=== PATIENT | female | born 1975 | race Two or more races ===

== ENCOUNTER 2024-01-28 20:27 | Inpatient (IN) | payer OTHER ==
[~2024-01-28] VITALS: Ht 167.6 cm; Wt 107.6 kg
--- NOTE | 2024-01-28 21:12 | ED.PDOC ---
History of Present Illness HPI Comments 48-year-old female who came to ER for hyperglycemia. Patient does have history of hypertension. Never diagnosed with diabetes. States she was at the store earlier, when she started having sudden onset blurring of vision, with headaches and dizziness. Blood sugar taken at home was 438. Patient admits that for the past few months she has been urinating frequently and is always thirsty. Upon arrival of the ER blood sugar was 510, with a blood pressure of 197/130 mm Hg. Chief Complaint: Hyperglycemia Time Seen by MD: 21:11 Reviewed Notes: Nurses Notes Allergies: Coded Allergies: No Known Drug Allergy (Verified Allergy, Unknown, 01/28/24) Information Source: Patient Mode of Arrival: Ambulatory Severity: Moderate Timing: Hours Duration: Intermittent Prehospital treatment: None Medication Refill: For: Other Past Medical History PAST MEDICAL HISTORY: HTN Surgical History: Denies all surgeries PURCHASING SUPERVISOR History: Denies all PURCHASING SUPERVISOR Hx Family History Family History: Reviewed,noncontributory to illness Social History Smoker: Non-Smoker Alcohol: Denies ETOH Use Drugs: Denies Drug Use Lives In: Home Constitutional: reports: fatigue, weakness; denies: chills, diaphoresis, fever, malaise, sweats, others EENTM: reports: blurred vision; denies: double vision, ear bleeding, ear discharge, ear drainage, ear pain, ear ringing, eye pain, eye redness, hearing loss, mouth pain, mouth swelling, nasal discharge, nose bleeding, nose congestion, nose pain, photophobia, tearing, throat pain, throat swelling, voice changes, others Respiratory: denies: cough, hemoptysis, orthopnea, SOB at rest, shortness of breath, SOB with excertion, stridor, wheezing, others Cardiovascular: denies: chest pain, dizzy spells, diaphoresis, Dyspnea on exertion, edema, irregular heart beat, left arm pain, lightheadedness, palpitations, PND, syncope, others Gastrointestinal: denies: abdomen distended, abdominal pain, blood streaked bowels, constipated, diarrhea, dysphagia, difficulty swallowing, hematemesis, melena, nausea, poor appetite, poor fluid intake, rectal bleeding, rectal pain, vomiting, others Genitourinary: denies: abnormal vagina bleeding, burning, dyspareunia, dysuria, flank pain, frequency, hematuria, incontinence, pain, , vagina discharge, urgency, others Neurological: reports: dizziness, headache; denies: fainting, left sided numbness, left sided weakness, numbness, paresthesia, pre-existing deficit, right sided numbness, right sided weakness, seizure, speech problems, tingling, tremors, weakness, others Musculoskeletal: denies: back pain, gout, joint pain, joint swelling, muscle pain, muscle stiffness, neck pain, others Integumetry: denies: bruises, change in color, change in hair/nails, dryness, laceration, lesions, lumps, rash, wounds, others Allergic/Immunocompromised: denies: Difficulty Healing, Frequent Infections, Hives, Itching, others Hematologic/Lymphatic: denies: anemia, blood clots, easy bleeding, easy bruising, swollen glands, others Endocrine: reports: excessive thirst, excessive urination; denies: excessive hunger, excessive sweating, flushing, intolerance to cold, intolerance to heat, unexplained weight gain, unexplained weight loss, others Psychiatric: denies: anxiety, bipolar disorder, depression, hopeless, panic disorder, schizophrenia, sleepless, suicidal, others Physical Exam General Appearance: No Apparent Distress, Normal HEENT: Normal ENT Inspection, Pharynx Normal, TMs Normal Neck: Full Range of Motion, Non-Tender, Normal, Normal Inspection Respiratory: Chest Non-Tender, Lungs Clear, No Accessory Muscle Use, No Respiratory Distress, Normal Breath Sounds Cardiovascular: No Edema, No JVD, No Murmur, No Gallop, Normal Peripheral Pulses, Regular Rate/Rhythm Breast Exam: Deferred Gastrointestinal: No Organomegaly, Non Tender, No Pulsatile Mass, Normal Bowel Sounds, Soft Genitalia: Deferred Pelvic: Deferred Rectal: Deferred Extremities: No calf tenderness, Normal capillary refill, Normal inspection, Normal range of motion, Non-tender, No pedal edema Musculoskeletal : Apperance: Normal Neurologic: Alert, director information security II-XII nml as Tested, No Motor Deficits, Normal Affect, Normal Mood, No Sensory Deficits Cerebellar Function: Normal Reflexes: Normal Skin: Dry, Normal Color, Warm Lymphatic: No Adenopathy Was a procedure done? Was a procedure done?: No Differential Dx Considerations may include: Anemia, electrolyte imbalance, hyperglycemia, urinary tract infection, hypertensive urgency X-Ray, Labs, Meds, VS Vital Signs Date Time Temp Pulse Resp B/P (MAP) Pulse Ox O2 Delivery O2 Flow Rate FiO2 01/28/24 20:53 98.5 108 20 194/120 (144) 98 Lab Test 01/28/24 21:10 01/28/24 21:08 01/28/24 20:48 Range/Units White Blood Count 13.1 H 4.4-10.8 10^3/uL Red Blood Count 5.00 4.0-5.20 10^6/uL Hemoglobin 14.3 12.2-16.2 g/dL Hematocrit 43.1 36.0-46.0 % Mean Corpuscular Volume 86.2 80.0-100.0 fL Mean Corpuscular Hemoglobin 28.5 28.0-32.0 pg Mean Corpuscular Hemoglobin Concent 33.1 32.0-36.0 g/dL Red Cell Distribution Width 15.0 H 11.8-14.3 % Platelet Count 232 140-450 10^3/uL Mean Platelet Volume 9.6 6.9-10.8 fL Neutrophils (%) (Auto) 68.1 37.0-80.0 % Lymphocytes (%) (Auto) 25.9 10.0-50.0 % Monocytes (%) (Auto) 4.8 0.0-12.0 % Eosinophils (%) (Auto) 0.6 0.0-7.0 % Basophils (%) (Auto) 0.6 0.0-2.0 % Neutrophils # (Auto) 8.9 H 1.6-8.6 10 ^3/uL Lymphocytes # (Auto) 3.4 0.4-5.4 10 ^3/uL Monocytes # (Auto) 0.6 0-1.3 10 ^3/uL Eosinophils # (Auto) 0.1 0-0.8 10 ^3/uL Basophils # (Auto) 0.1 0-0.2 10 ^3/uL Nucleated Red Blood Cells 0.2 % Sodium Level 134 L 136-145 mmol/L Potassium Level 3.5 3.5-5.1 mmol/L Chloride Level 98 98-107 mmol/L Carbon Dioxide Level 26 20-31 mmol/L Anion Gap 10 5-15 Blood Urea Nitrogen 10 9-23 mg/dL Creatinine 1.19 H 0.550-1.02 mg/dL Glomerular Filtration Rate Calc 56 >90 mL/min BUN/Creatinine Ratio 8.4 L 10.0-20.0 Serum Glucose 537 *H 74-106 mg/dL Calcium Level 10.2 8.7-10.4 mg/dL Magnesium Level 2.1 1.6-2.6 mg/dL Total Bilirubin 0.9 0.2-1.0 mg/dL Aspartate Amino Transferase (AST) 68 H 13-40 U/L Alanine Aminotransferase (ALT) 80 H 7-40 U/L Alkaline Phosphatase 130 H 46-116 U/L Total Protein 8.2 5.7-8.2 g/dL Albumin 4.2 3.2-4.8 g/dL Blood Gas Specimen Type Venous Blood Gas Sample Site Vbg - n/a Blood Gas Patient Temperature 37.0 Arterial Blood Date Drawn Diaz Test N/a Venous Blood pH 7.471 H 7.320-7.430 Venous Blood pCO2 at Patient Temp 41.6 38.0-54.0 mmHg Venous Blood pO2 at Patient Temp < 36.5 23.0-48.0 mmHg Venous Blood HCO3 29.7 H 22.0-29.0 mmol/L Venous Bld O2 Saturation (Measured) 45.4 L 60.0-85.0 % Venous Blood Base Excess 5.5 H -2.0-3.0 mmol/L Venous Blood Total Hemoglobin 14.7 12.0-16.0 g/dL Venous Blood Oxyhemoglobin 44.8 0.0-79.0 % Venous Blood Carboxyhemoglobin 0.9 0.5-1.5 % Venous Blood Methemoglobin 0.5 0.0-1.5 % Blood Gas Modality Room air FiO2 % 21.0 POC Glucose 510 *H 70-106 mg/dl Time of 1ST Reevaluation: 21:09 Reevaluation 1ST: Unchanged Time of 2ND Reevaluation: 22:19 Reevaluation 2ND: Unchanged Patient Education/Counseling: Diagnosis, Treatment Family Education/Counseling: No Family Present Departure 1 Departure Time of Disposition: 22:18 Impression: Primary Impression: Hyperglycemia due to diabetes mellitus Additional Impression: Newly diagnosed diabetes Disposition: ADMITTED INPATIENT Condition: Guarded Critical Care Note Critical Care Time?: Yes (35 min-critical care time only) Critical care comment: Hyperglycemia Stability Stability form required: No Heart Score Heart Score: Heart Score Response (Comments) Value History N/A 0 EKG N/A 0 Age N/A 0 Risk Factors N/A 0 Troponin N/A 0 Total 0 I personally scribed for YANI JONES MD ([email or web address]) on 01/28/24 at 21:12. Electronically submitted by Denny Bernal ([email or web address]). YANI JONES MD Jan 28, 2024 21:12
[2024-01-28 21:21] LABS: Basophils # (auto) 0.1 10 ^3/uL (0-0.2); Basophils % (auto) 0.6 % (0.0-2.0); Eosinophils # (auto) 0.1 10 ^3/uL (0-0.8); Eosinophils % (auto) 0.6 % (0.0-7.0); Hematocrit 43.1 % (36.0-46.0); Hemoglobin 14.3 g/dL (12.2-16.2); Lymphocytes # (auto) 3.4 10 ^3/uL (0.4-5.4); Lymphocytes % (auto) 25.9 % (10.0-50.0); Mean Corpuscular Hemoglobin 28.5 pg (28.0-32.0); Mean Corpuscular Hgb Conc. 33.1 g/dL (32.0-36.0); Mean Corpuscular Volume 86.2 fL (80.0-100.0); Monocytes # (auto) 0.6 10 ^3/uL (0-1.3); Monocytes % (auto) 4.8 % (0.0-12.0); Neutrophils # (auto) 8.9 10 ^3/uL (1.6-8.6); Neutrophils % (auto) 68.1 % (37.0-80.0); Nucleated Red Blood Cells % 0.2 %; Platelet Count (auto) 232 10^3/uL (140-450); White Blood Cell 13.1 10^3/uL (4.4-10.8)
[2024-01-28 21:41] LABS: Alanine Aminotransferase 80 U/L (7-40); Albumin 4.2 g/dL (3.2-4.8); Alkaline Phosphatase 130 U/L (46-116); Anion Gap 10 (5-15); Aspartate Aminotransferase 68 U/L (13-40); BUN/Creatinine Ratio 8.4 (10.0-20.0); Blood Urea Nitrogen 10 mg/dL (9-23); Calcium 10.2 mg/dL (8.7-10.4); Carbon Dioxide 26 mmol/L (20-31); Chloride 98 mmol/L (98-107); Magnesium 2.1 mg/dL (1.6-2.6); Potassium 3.5 mmol/L (3.5-5.1); Sodium 134 mmol/L (136-145)
[2024-01-28 21:42] LABS: Bilirubin, Total 0.9 mg/dL (0.2-1.0); Total Protein 8.2 g/dL (5.7-8.2)
[2024-01-28 21:57] LABS: Glucose 537 mg/dL (74-106)
[2024-01-28 23:10] VITALS: PULSE 95; RESP 18; O2SAT 98
[2024-01-28] MEDS: SODIUM CHLORIDE 0.9% 1,000 ML IVB ONE (23:18)
[2024-01-28] MEDS: cloNIDine HCL 0.1 MG TAB PO ONE (23:21)
[2024-01-29] VITALS (11 sets, daily range): BP systolic 103–180; BP diastolic 58–95; PULSE 62–90; RESP 18–21; TEMP 97.8–98.3; O2SAT 91–100
[2024-01-29] MEDS: hydrALAZINE HCL 20 MG/ML VL IV ONE
[2024-01-29] MEDS: ONDANSETRON HCL 4 MG/2 ML VIAL IV ONE (00:08)
[2024-01-29] MEDS: MORPHINE SULFATE 4 MG/ML SYR/VIAL IV ONE (00:08)
[2024-01-29] MEDS: InsuLIN REG 1unit/0.01ml Soln (100units/ml) IV ONE (00:44)
[2024-01-29] MEDS ORDERED: ONDANSETRON HCL 4 MG/2 ML VIAL IV PRN (01:00)
[2024-01-29] MEDS ORDERED: DOCUSATE SOD 100 MG CAP PO PRN (01:00)
[2024-01-29] MEDS ORDERED: DEXTROSE (50%) 50ML SYRG IV PRN ×4 (01:00→15:00)
[2024-01-29] MEDS ORDERED: hydrALAZINE HCL 20 MG/ML VL IV PRN (01:00)
[2024-01-29] MEDS: SODIUM CHLORIDE 0.9% 1,000 ML IV SCH (01:10)
[2024-01-29 02:04] LABS: Urine Bacteria MANY /hpf (None Seen); Urine Blood Negative /uL (Negative); Urine Clarity Turbid (Clear); Urine Color Colorless (Yellow); Urine Protein, UAD TRACE (Negative); Urine Specific Gravity 1.031 (1.001-1.035); Urine Urobilinogen Normal (Negative); Urine WBC 8 /hpf (0 - 5); Urine pH 5.5 (5.0-9.0)
[2024-01-29] MEDS ORDERED: MORPHINE SULFATE INJ 2 MG/ml SYRG IV PRN (02:15)
[2024-01-29] MEDS ORDERED: NITROGLYCERIN 0.4 MG SL TAB SL PRN (02:15)
--- NOTE | 2024-01-29 02:28 | DVHHP2 ---
History of Present Illness Reason for Visit: Hypertensive urgency History of Present Illness The patient is a 48-year-old female with past medical history of hypertension who presented to [facility] ED with complaint of elevated blood sugar. Patient reports having sudden onset of blurry vision, dizziness, headache, weakness, fatigue, getting worse that prompted this visit. Patient was seen and evaluated in the ED, laboratory data shows WBC 13.1, platelets 232, sodium 134, potassium 3.5, BUN 10, creatinine 1.19, glucose 537, AST 68, ALT 80, blood pressure 230/130 trending down to 156/93, heart rate 88, temperature 98.6 F, O2 saturation 98% on room air. Patient denies history of diabetes mellitus. Patient was given clonidine 0.2 mg p.o. x1, please see medication orders section in the computer. On my assessment, patient denied chest pain, no headache, no diaphoresis, no shortness of breath, no nausea, no vomiting, no fever, no chills . Patient was admitted for further evaluation and medical management. Past Medical History HTN Past Surgical History Denies all surgeries Family History Reviewed, noncontributory to the management of this case. Past Social History The patient lives at home, denies smoking, alcohol or illicit drugs abuse. Review of Systems Constitutional: Yes: Weakness, Other (Fatigue); No: Fever, Chills, Sweats, Malaise Eyes: Other (Blurred vision); No: Pain, Vision change, Conjunctivae inflammation, Eyelid inflammation, Redness ENT: No: Ear pain, Ear discharge, Nose pain, Nose discharge, Nose congestion, Mouth pain, Mouth swelling, Throat pain, Throat swelling, Other Respiratory: No: Cough, Dry, Shortness of breath, SOB with excertion, Wheezing, Hemoptysis, Pleuritic Pain, Sputum, Wheezing, Other Cardiovascular: No: Chest Pain, Palpitations, Orthopnea, Paroxysmal Noc. Dyspnea, Edema, Lt Headedness, Other Gastrointestinal: No: Nausea, Vomiting, Abdominal Pain, Diarrhea, Constipation, Melena, Hematochezia, Other Genitourinary: No Dysuria, No Frequency, No Incontinence, No Hematuria, No Retention, No Other Musculoskeletal: No: other, neck pain, shoulder pain, arm pain, back pain, hand pain, leg pain, foot pain Skin: No: Rash, Lesions, Jaundice, Bruising, Other Neurological: Other (Headache, dizziness.); No: Weakness, Numbness, Incoordination, Change in speech, Confusion, Seizures Allergies: Coded Allergies: No Known Drug Allergy (Verified Allergy, Unknown, 01/28/24) Medications Current Medications Medications Dose Ordered Sig/Juan C Route Start Time Stop Time Status Last Admin Dose Admin Hydralazine HCl 10 mg Q6HP PRN IV 01/29/24 01:00 Clonidine HCl 0.2 mg Q6HP PRN PO 01/29/24 01:00 Amlodipine Besylate 5 mg DAILY PO 01/29/24 10:00 Lisinopril 20 mg DAILY PO 01/29/24 10:00 Metoprolol Tartrate 25 mg BID PO 01/29/24 10:00 Ibuprofen 600 mg Q6HP PRN PO 01/29/24 01:00 Diagnostic Test (Pha) 1 strip IQ4HR 01/29/24 04:00 Insulin Human Regular IQ4HR SC 01/29/24 04:00 Dextrose 50 ml UD PRN IV 01/29/24 01:00 Sodium Chloride 1,000 ml @ 120 mls/hr Q8H20M IV 01/29/24 01:00 01/29/24 01:10 120 MLS/HR Acetaminophen/ Hydrocodone Bitart 1 tab Q4HP PRN PO 01/29/24 01:00 Ondansetron HCl 4 mg Q4HP PRN IV 01/29/24 01:00 Docusate Sodium 100 mg BIDPRN PRN PO 01/29/24 01:00 Morphine Sulfate 2 mg Q4HPRN PRN IV 01/29/24 01:00 Exam Vital Signs Vital Signs Date Time Temp Pulse Resp B/P (MAP) Pulse Ox O2 Delivery O2 Flow Rate FiO2 01/29/24 02:00 84 21 156/93 (114) 90 01/29/24 00:45 98.6 98.6 01/29/24 00:45 Room Air* 0 21 General Appearance: Alert, Oriented X3, Cooperative, No acute distress HEENT: Atraumatic, PERRLA, EOMI, Mucous membr. moist/pink Respiratory: Clear to auscultation, Normal air movement Cardiovascular: Regular rate, Normal S1, Normal S2, No murmurs Abdominal: Normal bowel sounds, Soft, No tenderness, No hepatospenomegaly, No m asses Extremities: No clubbing, No cyanosis, No edema, Normal pulses, No tenderness/swelling Skin: No rashes, No breakdown, No significant lesion Neuro: Normal gait, Normal speech, Strength at 5/5 X4 ext, Normal tone, Sensation intact, Cranial nerves 3-12 NL, Reflexes 2+ Psych/Mental Status: Mental status NL, Mood NL Labs/Xrays Labs Test 01/29/24 00:39 01/29/24 00:00 01/28/24 21:10 01/28/24 21:08 Range/Units POC Glucose 347 H 70-106 mg/dl Urine Color Colorless Yellow Urine Clarity Turbid H Clear Urine pH 5.5 5.0-9.0 Urine Specific [place] 1.031 1.001-1.035 Urine Protein Trace H Negative Urine Ketones Trace Negative Urine Blood Negative Negative /uL Urine Nitrite Negative Negative Urine Bilirubin Negative Negative Urine Urobilinogen Normal Negative mg/dL Urine Leukocyte Esterase Negative Negative /uL Urine RBC 16 0 - 4 /hpf Urine WBC 8 0 - 5 /hpf Urine Squamous Epithelial Cells Mod <5 /hpf Urine Bacteria Many H None Seen /hpf Urine Glucose 4+ H Normal mg/dL White Blood Count 13.1 H 4.4-10.8 10^3/uL Red Blood Count 5.00 4.0-5.20 10^6/uL Hemoglobin 14.3 12.2-16.2 g/dL Hematocrit 43.1 36.0-46.0 % Mean Corpuscular Volume 86.2 80.0-100.0 fL Mean Corpuscular Hemoglobin 28.5 28.0-32.0 pg Mean Corpuscular Hemoglobin Concent 33.1 32.0-36.0 g/dL Red Cell Distribution Width 15.0 H 11.8-14.3 % Platelet Count 232 140-450 10^3/uL Mean Platelet Volume 9.6 6.9-10.8 fL Neutrophils (%) (Auto) 68.1 37.0-80.0 % Lymphocytes (%) (Auto) 25.9 10.0-50.0 % Monocytes (%) (Auto) 4.8 0.0-12.0 % Eosinophils (%) (Auto) 0.6 0.0-7.0 % Basophils (%) (Auto) 0.6 0.0-2.0 % Neutrophils # (Auto) 8.9 H 1.6-8.6 10 ^3/uL Lymphocytes # (Auto) 3.4 0.4-5.4 10 ^3/uL Monocytes # (Auto) 0.6 0-1.3 10 ^3/uL Eosinophils # (Auto) 0.1 0-0.8 10 ^3/uL Basophils # (Auto) 0.1 0-0.2 10 ^3/uL Nucleated Red Blood Cells 0.2 % Sodium Level 134 L 136-145 mmol/L Potassium Level 3.5 3.5-5.1 mmol/L Chloride Level 98 98-107 mmol/L Carbon Dioxide Level 26 20-31 mmol/L Anion Gap 10 5-15 Blood Urea Nitrogen 10 9-23 mg/dL Creatinine 1.19 H 0.550-1.02 mg/dL Glomerular Filtration Rate Calc 56 >90 mL/min BUN/Creatinine Ratio 8.4 L 10.0-20.0 Serum Glucose 537 *H 74-106 mg/dL Calcium Level 10.2 8.7-10.4 mg/dL Magnesium Level 2.1 1.6-2.6 mg/dL Total Bilirubin 0.9 0.2-1.0 mg/dL Aspartate Amino Transferase (AST) 68 H 13-40 U/L Alanine Aminotransferase (ALT) 80 H 7-40 U/L Alkaline Phosphatase 130 H 46-116 U/L Total Protein 8.2 5.7-8.2 g/dL Albumin 4.2 3.2-4.8 g/dL Blood Gas Specimen Type Venous Blood Gas Sample Site Vbg - n/a Blood Gas Patient Temperature 37.0 Arterial Blood Date Drawn [id number] Diaz Test N/a Venous Blood pH 7.471 H 7.320-7.430 Venous Blood pCO2 at Patient Temp 41.6 38.0-54.0 mmHg Venous Blood pO2 at Patient Temp < 36.5 23.0-48.0 mmHg Venous Blood HCO3 29.7 H 22.0-29.0 mmol/L Venous Bld O2 Saturation (Measured) 45.4 L 60.0-85.0 % Venous Blood Base Excess 5.5 H -2.0-3.0 mmol/L Venous Blood Total Hemoglobin 14.7 12.0-16.0 g/dL Venous Blood Oxyhemoglobin 44.8 0.0-79.0 % Venous Blood Carboxyhemoglobin 0.9 0.5-1.5 % Venous Blood Methemoglobin 0.5 0.0-1.5 % Blood Gas Modality Room air FiO2 % 21.0 Assessment/Plan Assessment/Plan Hyperglycemia due to diabetes mellitus Newly diagnosed diabetes Hypertensive urgency Elevated liver enzymes Leukocytosis, unspecified Plan 1. Admit to telemetry unit 2. Breathing treatment 3. Pain control management 4. IV antibiotic management 5. Management of fluids and electrolytes 6. Consultation for hospitalist 7. Diagnostic test chest x-ray 8. DVT prophylaxis-on SCDs 9. Repeat labs CBC, CMP in a.m. 10. Home medication reviewed and reconciled 11. Continue with current medical management 12. Treatment plan discussed with patient and RN. Patient verbalized understanding. Plan discussed with: Patient, Other (RN) My Orders Orders - ADA MCKEON DNP Procedure Category Date Status Time Complete Blood Count LAB 01/29/24 Logged 04:00 Comprehensive LAB 01/29/24 Logged Metabolic Panel 04:00 Hydralazine Injection PHA 01/29/24 In Process (Apresoline Inject 01:00 Clonidine Hcl Tablet PHA 01/29/24 In Process (Catapres Tablet) 01:00 Amlodipine Tablet PHA 01/29/24 In Process (Norvasc Tablet) 10:00 Lisinopril Tablet PHA 01/29/24 In Process (Zestril Tablet) 10:00 Metoprolol Tartrate PHA 01/29/24 In Process Tablet (Lopressor Ta 10:00 Consistent DIET 01/29/24 Transmitted Carb(Ccho)Diabetes Breakfast Ibuprofen Tablet PHA 01/29/24 In Process (Motrin Tablet) 01:00 Glucose Blood PHA 01/29/24 In Process (Accu-Chek Comfort 04:00 Insulin R (Human) PHA 01/29/24 In Process (Insulin R) 04:00 Dextrose 50% Syringe PHA 01/29/24 In Process 01:00 Allergies [place] 01/29/24 In Process 01:00 Code Status CODE 01/29/24 Transmitted 01:00 Sodium Chloride 0.9% PHA 01/29/24 In Process 01:00 Oxygen Per Hour RT 01/29/24 Transmitted 01:00 Hydrocodone-Acet PHA 01/29/24 In Process 5/325mg Tab ([place] 01:00 Ondansetron Hcl PHA 01/29/24 In Process (Zofran) 01:00 Docusate Sodium PHA 01/29/24 In Process Capsule (Colace 01:00 Complete Blood Count LAB 01/30/24 Verified 04:00 Comprehensive LAB 01/30/24 Verified Metabolic Panel 04:00 Condition: Serious [facility] 01/29/24 In Process 01:00 Bedrest With Bathroom [facility] 01/29/24 In Process Privileg 01:00 Morphine Sulfate PHA 01/29/24 In Process Injection 01:00 Sequential [facility] 01/29/24 In Process Compression Device Admit ADMIT 01/29/24 Transmitted 02:12 Nitroglycerin [facility] 01/29/24 Transmitted Sublingual (Ntrostat 02:15 Morphine Sulfate PHA 01/29/24 Transmitted Injection 02:15 Notify Of Changes [facility] 01/29/24 Transmitted From Base 02:12 Accounts Receivable Collector For [facility] 01/29/24 Transmitted 24 Hours 02:12 Emergency Dysrhythmia [facility] 01/29/24 Transmitted Protocol 02:12 Rhythm Strips Once [facility] 01/29/24 Transmitted Every Shift 02:12 Oxygen By Nasal RT 01/29/24 Transmitted Cannula 02:12 Problem List: (1) Hyperglycemia due to diabetes mellitus (2) Newly diagnosed diabetes (3) Hypertensive urgency (4) Elevated liver enzymes (5) Leukocytosis, unspecified Date of Service: Jan 29, 2024 Billing Provider: ADA MCKEON DNP Common Visit Codes: [id number] INP/OBS CARE (HIGH) ADA MCKEON DNP Jan 29, 2024 02:28
[2024-01-29] MEDS: cefTRIAXone 1GM/50ML D5W 50 ML IV ONE (02:58)
[2024-01-29] MEDS: ACCU-CHEK COMFORT CURVE STRIP VI SCH ×4 (03:54→17:00)
[2024-01-29] MEDS ORDERED: InsuLIN REG 1unit/0.01ml Soln (100units/ml) SC SCH ×2 (04:00)
[2024-01-29] MEDS: InsuLIN REG 1unit/0.01ml Soln (100units/ml) SC SCH ×2 (04:14→17:00)
[2024-01-29] MEDS ORDERED: LISI40TA16 PO (05:16)
[2024-01-29] MEDS ORDERED: HYDR25TA4 PO (05:16)
[2024-01-29] MEDS ORDERED: DILT180T PO (05:16)
[2024-01-29] MEDS ORDERED: SPIR50TA5 PO (05:16)
[2024-01-29] MEDS: cloNIDine HCL 0.1 MG TAB PO PRN (08:07)
[2024-01-29 09:21] LABS: Basophils # (auto) 0.1 10 ^3/uL (0-0.2); Basophils % (auto) 0.5 % (0.0-2.0); Eosinophils # (auto) 0.1 10 ^3/uL (0-0.8); Eosinophils % (auto) 1.2 % (0.0-7.0); Hematocrit 37.6 % (36.0-46.0); Hemoglobin 12.7 g/dL (12.2-16.2); Lymphocytes # (auto) 3.8 10 ^3/uL (0.4-5.4); Lymphocytes % (auto) 31.6 % (10.0-50.0); Mean Corpuscular Hemoglobin 28.3 pg (28.0-32.0); Mean Corpuscular Hgb Conc. 33.6 g/dL (32.0-36.0); Mean Corpuscular Volume 84.2 fL (80.0-100.0); Monocytes # (auto) 0.6 10 ^3/uL (0-1.3); Monocytes % (auto) 4.8 % (0.0-12.0); Neutrophils # (auto) 7.4 10 ^3/uL (1.6-8.6); Neutrophils % (auto) 61.9 % (37.0-80.0); Nucleated Red Blood Cells % 0.1 %; Platelet Count (auto) 260 10^3/uL (140-450); Red Blood Cells 4.47 10^6/uL (4.0-5.20); Red Cell Distribution Width 14.7 % (11.8-14.3); White Blood Cell 11.9 10^3/uL (4.4-10.8)
[2024-01-29] MEDS: amLODIPine BESYLATE 5 MG TAB PO SCH (09:22)
[2024-01-29] MEDS: METOPROLOL TARTRATE 25 MG TAB PO SCH (09:23)
[2024-01-29 09:42] LABS: Alanine Aminotransferase 72 U/L (7-40); Albumin 3.8 g/dL (3.2-4.8); Alkaline Phosphatase 105 U/L (46-116); Anion Gap 7 (5-15); Aspartate Aminotransferase 62 U/L (13-40); BUN/Creatinine Ratio 10.9 (10.0-20.0); Bilirubin, Total 0.8 mg/dL (0.2-1.0); Blood Urea Nitrogen 10 mg/dL (9-23); Calcium 9.5 mg/dL (8.7-10.4); Carbon Dioxide 31 mmol/L (20-31); Chloride 103 mmol/L (98-107); Glucose 182 mg/dL (74-106); Sodium 141 mmol/L (136-145); Total Protein 7.3 g/dL (5.7-8.2)
[2024-01-29] MEDS ORDERED: LISINOPRIL 20 MG TAB PO SCH (10:00)
[2024-01-29] MEDS: INSULIN LISPRO (HUMAN) 100 UNITS/ML ML SC SCH ×2 (11:30→17:00)
[2024-01-29] MEDS: LISINOPRIL 20 MG TAB PO SCH (12:03)
--- NOTE | 2024-01-29 12:05 | DVH ---
CHEST RADIOGRAPH Indication: dyspena Technique: Single frontal view of the chest was obtained COMPARISON: None FINDINGS: Lines and Tubes: None Lungs: Ingestion Pleura: No effusion. No pneumothorax. Cardiomediastinal contours: Cardiomegaly Bones: Unremarkable IMPRESSION: Pulmonary edema.
[2024-01-29] MEDS: POTASSIUM CHLORIDE 40 MEQ, LIDOCAINE 1% (LOCAL ANESTH.) 4 ML in SODIUM CHL 0.9% 250 ML IV ONE (15:00)
--- NOTE | 2024-01-29 16:21 | DVHPNRES ---
Progress Note Date Seen: Jan 29, 2024 Resident Creating Document: ALEJO BROWNING RESIDENT Has the PT tested + for MRSA If YES, has PT been informed?: No Medical Necessity Reason Pt with a Central, PICC or Fol: No Subjective Review of Systems A 48-year-old female with past medical history of hypertension and sleep apnea come to the hospital due to blurry vision dizziness headache weakness fatigue blood sugars were found at admission above 500 also blood pressure was found elevated 230/130 Patient denied history of diabetes or heart failure Home meds diltiazem hydrochlorothiazide lisinopril spironolactone Objective vital signs Vital Sign Date Time Temp Pulse Resp B/P (MAP) Pulse Ox O2 Delivery O2 Flow Rate FiO2 01/29/24 13:00 98.3 72 20 139/79 (99) 99 98.3 01/29/24 08:00 Room Air* 0 21 Total Intake and Output 01/28/24 01/28/24 01/29/24 15:00 23:00 07:00 Intake Total 1250 ml Balance 1250 ml medications Current Medications Medications Dose Ordered Sig/Juan C Route Start Time Stop Time Status Last Admin Dose Admin Amlodipine Besylate 5 mg DAILY PO 01/29/24 10:00 01/29/24 09:22 5 MG Metoprolol Tartrate 25 mg BID PO 01/29/24 10:00 01/29/24 09:23 25 MG Ibuprofen 600 mg Q6HP PRN PO 01/29/24 01:00 Acetaminophen/ Hydrocodone Bitart 1 tab Q4HP PRN PO 01/29/24 01:00 Docusate Sodium 100 mg BIDPRN PRN PO 01/29/24 01:00 Morphine Sulfate 2 mg Q4HPRN PRN IV 01/29/24 01:00 Ceftriaxone Sodium 50 ml @ 100 mls/hr DAILY@2100 IV 01/29/24 21:00 Diagnostic Test (Pha) 1 strip IQ4HR 01/29/24 04:00 01/29/24 12:03 1 STRIP Insulin Human Regular IQ4HR SC 01/29/24 04:00 01/29/24 12:04 6 UNITS Dextrose 50 ml UD PRN IV 01/29/24 04:00 Insulin Glargine 15 units HS SC 01/29/24 22:00 Lisinopril 60 mg DAILY PO 01/29/24 10:00 01/29/24 12:03 60 MG Insulin Human Lispro 5 units TID SC 01/29/24 18:00 UNV Examination GEN: Healthy appearing, well-developed, NAD. PSYCH: Good Judgment. AOx3. Normal memory, mood, and affect. HEENT -Head: normocephalic atraumatic, no facial trauma, neck is supple -Eyes: PERRL, EOMI. No discharge or redness; -Ears: External ears are normal. Normal TMs. -Nose: Normal nares. -Mouth and throat: MMM. Normal gums, mucosa, palate,. Good dentition. NECK: Supple, with no masses. CV: RRR, no m/r/g. LUNGS: respiratory effort normal, speaks in full sentences, no tripod position, no accessory muscle use. Lungs clear to auscultation without rhonchi, wheezes, rales ABD: Soft, ND/NT. No evidence of fluid wave. No pulsatile masses on exam, rebound tenderness, De Luna sign or pain over Mcburney's point. : N/A SKIN: Warm, well perfused. No skin rashes or abnormal lesions. MSK: No deformities or signs of scoliosis. Normal gait. EXT: No clubbing, cyanosis, or edema. NEURO: Ambulating with no limitations. Normal muscle strength and tone. No focal deficits. laboratory and microbiology Laboratory Tests 01/29/24 09:02 Test 01/29/24 09:02 Range/Units Serum Glucose 182 H 74-106 mg/dL Problem List/Assessment/Plan Problem List/Assessment/Plan #New onset DM type 2 hba1c 9.7 #Hypokalemia #Hypertensive urgency #Pulmonary congestion #Cardiomegaly #Leukocytosis Stop fluids Adjust insulin: lantus 15 ui, lispro 5 tid EKG normal Keep AB: urine culture ordered No consolidation on xray K IV BP meds: metoprolol 25 mg BID, lisinopril 60 mg PO ECHO pending BNP normal Case discussed with Dr Barlow Time spent on care 23 min Plan discussed with: Patient, Other (rn) My Orders My Orders Orders - ALEJO BROWNING RESIDENT Procedure Category Date Status Time Insulin Lantus PHA 01/29/24 In Process (Glargine) (Lantus) 22:00 Chest Xray 1 View XY 01/29/24 Resulted 08:31 Chest Xray 1 View XY 01/29/24 Logged 08:32 Lisinopril Tablet PHA 01/29/24 In Process (Zestril Tablet) 10:00 Electrocardigram EKG 01/29/24 Logged 10:46 Bipap/Cpap For Sleep RT 01/29/24 Logged Apnea 12:57 Bipap/Cpap For Sleep RT 01/29/24 Logged Apnea 13:13 Insulin Lispro PHA 01/29/24 Transmitted (Human) (Humalog) 18:00 Glucose Blood PHA 01/29/24 Verified (Accu-Chek Comfort 17:00 Mild Sliding Scale PHA 01/29/24 Verified 17:00 Dextrose 50% Syringe PHA 01/29/24 Verified 15:00 Date of Service: Jan 29, 2024 Billing Provider: DUKE BARLOW MD Common Visit Codes: [id number] INP/OBS CARE(HIGH) ALEJO BROWNING RESIDENT Jan 29, 2024 16:21 DUKE BARLOW MD Jan 29, 2024 21:30
--- NOTE | 2024-01-29 18:34 | DVHSR ---
APPROVED REPORT EXAM: Two-dimensional and M-mode echocardiogram with Doppler and color Doppler. Blood Pressure: 180/95 mmHg INDICATION Rule out CHF RISK FACTORS Height: 5' 6", Weight: 233 DIMENSIONS LVDd5.6 (3.8-5.7cm)LA (2D)4.4 (1.9-4.0cm)Aortic Root3.5 (2.0-3.7cm) LVDs4.3 (2.5-4.0cm)LA (MM) (1.9-4.0cm)Aortic Cusp Exc1.9 (1.5-2.0cm) EF (%) 45.0 (55-70%)Rt. Atrium4.4 (1.9-4.0cm)Asc. Aorta cm IVSd1.7 (0.7-1.1cm)RV (D) (1.8-2.4cm) PWd1.6 (0.7-1.1cm) Mitral Valve MitralMitral Stenosis E wave1.20m/sMV Mean GR.mmHg A wave1.00m/sMV Peak GR.mmHg E/A ratio1.22D MVAcm2 Aortic Valve Aortic ValveAortic Stenosis V10.90m/Ajit Mean GR.8mmHg V21.70m/Ajit Peak GR.12mmHg LVOT Diameter2.3 (1.8-2.4cm)Doppler AVA2.20cm2 Pulmonic Valve V20.80m/s Tricuspid Valve TR Velocity3.10m/s [id number] Conclusion MODERATE DEGREE LVH AND MODERATE DEGREE LV DIASTOLIC DYSFUNCTION LV EJECTION FRACTION IS 45% AND IS BORDERLINE REDUCED MODERATE DEGREE LV DIASTOLIC DYSFUNCTION ASSOCIATED WITH MILD SYSTOLIC DYSFUNCTION NORMAL VALVES NO EFFUSION MODERATE DEGREE PULMONARY HYPERTENSION RVSP IS 50 MM OF HG AND IS MODERATELY HIGH NORMAL RV FUNCTION
[2024-01-29] MEDS: MORPHINE SULFATE INJ 2 MG/ml SYRG IV PRN (20:39)
[2024-01-29] MEDS: cefTRIAXone 1GM/50ML D5W 50 ML IV SCH (21:43)
[2024-01-29] MEDS: INSULIN LANTUS (GLARGINE) 1 /0.01ml (100units/ml) SC SCH (22:11)
[2024-01-30] VITALS (11 sets, daily range): BP systolic 113–153; BP diastolic 68–88; PULSE 65–92; RESP 18–19; TEMP 97.4–98.8; O2SAT 91–100
[2024-01-30 06:40] LABS: Basophils # (auto) 0.1 10 ^3/uL (0-0.2); Basophils % (auto) 0.4 % (0.0-2.0); Eosinophils # (auto) 0.2 10 ^3/uL (0-0.8); Eosinophils % (auto) 1.4 % (0.0-7.0); Hematocrit 37.1 % (36.0-46.0); Hemoglobin 12.3 g/dL (12.2-16.2); Lymphocytes # (auto) 4.2 10 ^3/uL (0.4-5.4); Mean Corpuscular Hemoglobin 28.1 pg (28.0-32.0); Mean Corpuscular Hgb Conc. 33.1 g/dL (32.0-36.0); Mean Corpuscular Volume 84.8 fL (80.0-100.0); Monocytes # (auto) 0.7 10 ^3/uL (0-1.3); Monocytes % (auto) 5.7 % (0.0-12.0); Neutrophils # (auto) 7.6 10 ^3/uL (1.6-8.6); Neutrophils % (auto) 59.5 % (37.0-80.0); Platelet Count (auto) 247 10^3/uL (140-450); Red Blood Cells 4.38 10^6/uL (4.0-5.20); Red Cell Distribution Width 14.8 % (11.8-14.3); White Blood Cell 12.8 10^3/uL (4.4-10.8)
[2024-01-30 07:23] LABS: Alanine Aminotransferase 84 U/L (7-40); Albumin 3.9 g/dL (3.2-4.8); Alkaline Phosphatase 93 U/L (46-116); Anion Gap 10 (5-15); Aspartate Aminotransferase 69 U/L (13-40); BUN/Creatinine Ratio 11.7 (10.0-20.0); Blood Urea Nitrogen 11 mg/dL (9-23); Calcium 9.3 mg/dL (8.7-10.4); Carbon Dioxide 26 mmol/L (20-31); Chloride 106 mmol/L (98-107); Glucose 155 mg/dL (74-106); Potassium 3.3 mmol/L (3.5-5.1); Sodium 142 mmol/L (136-145)
[2024-01-30 07:24] LABS: Bilirubin, Total 0.8 mg/dL (0.2-1.0)
[2024-01-30] MEDS: ENOXAPARIN SOD 40 MG/0.4 ML SYRINGE SC SCH (08:36)
[2024-01-30] MEDS: EMPAGLIFLOZIN 10 MG TAB PO SCH (08:37)
[2024-01-30] MEDS: SPIRONOLACTONE 25 MG TAB PO SCH (08:37)
[2024-01-30] MEDS: LISINOPRIL 20 MG TAB PO SCH (08:38)
[2024-01-30] MEDS ORDERED: POTASSIUM CHL 20MEQ/100ML 100 ML IV SCH (09:00)
--- NOTE | 2024-01-30 10:58 | DVHINCON2 ---
Date Seen: Jan 30, 2024 Referring Physician MD Kevin Reason for Consultation New onset CHF History of Present Illness This is a pleasant 48 year-old female who presented to the Emergency Room with a chief complain of visual disturbances. The patient reports a sudden onset of blurry vision associated with polydipsia, polyuria, dizziness, and a headache. She found her blood sugar home to be 438 ng/dL. Upon arrival to the emergency room she was found with a blood sugar level of 510 ng/dL and a systolic blood pressure in the 190s mmHg. Denies being diagnosed with diabetes in the past. States she takes her antihypertensive therapy regularly. Denies chest pain, pal pitations, diaphoresis, shortness of breath, or syncopal events. She underwent a 12 lead electrocardiogram revealing a sinus rhythm with ST segment depression to inferolateral leads and suggestive of left ventricular hypertrophy and biatrial enlargement. Of note, the patient reports intraoperative cardiac arrest during stomach tumor removal on 05/2022. She followed up with card iology undergoing an unremarkable transthoracic echocardiogram and nonischemic stress test on 09/2022. Significant medical history includes hypertension, migraine MCKEON, cerebrovascular accident, intraoperative cardiac arrest on 05/2022, and obesity. Past Medical History Past medical history reviewed. No other significant than mentioned above. Past Surgical History Stomach tumor removal Hysterectomy Family History: Diabetes during G8 BROTHER Hypertension G8 MOTHER G8 FATHER Seizure disorder G8 MOTHER Family History Family history reviewed. Social History Denies the use of illicit drugs, alcohol, or tobacco use. Allergies: Coded Allergies: No Known Drug Allergy (Verified Allergy, Unknown, 01/28/24) Home Meds Reported Medications Hydrochlorothiazide (Hydrochlorothiazide) 25 Mg Tab, 25 MG PO DAILY, TAB 01/29/24 Diltiazem HCl (Cardizem LA) 180 Mg Tab, 1 TAB PO DAILY 01/29/24 Lisinopril (Lisinopril) 40 Mg Tab, 60 MG PO DAILY, TAB 01/29/24 Spironolactone (Spironolactone) 50 Mg Tab, 1 TAB PO DAILY 01/29/24 Home Meds Home medications reviewed. Current Medications Current Medications Medications (Trade) Dose Ordered Sig/Juan C Route PRN Reason Start Time Stop Time Status Last Admin Ceftriaxone Sodium 50 ml @ 100 mls/hr DAILY@2100 IV 01/29/24 21:00 01/29/24 21:43 Insulin Glargine (Lantus) 15 units HS SC 01/29/24 22:00 01/29/24 22:11 Insulin Human Lispro (HumaLOG) 5 units AC SC 01/29/24 11:30 01/29/24 14:55 DC 01/29/24 11:30 Insulin Human Lispro (HumaLOG) 5 units TIDAC SC 01/29/24 17:00 01/30/24 06:37 Diagnostic Test (Pha) (Accu-Chek Comfort Curve T) 1 strip ACHS 01/29/24 17:00 01/30/24 06:34 Insulin Human Regular (InsuLIN R) ACHS SC 01/29/24 17:00 01/30/24 06:35 Dextrose 50 ml UD PRN IV Blood Sugar LESS THAN 60 01/29/24 15:00 Enoxaparin Sodium (Lovenox) 40 mg DAILY SC 01/30/24 10:00 01/30/24 08:36 Lisinopril (Zestril Tablet) 40 mg DAILY PO 01/30/24 10:00 01/30/24 08:38 Spironolactone (Aldactone) 50 mg DAILY PO 01/30/24 10:00 01/30/24 08:37 Empaglifozin (Jardiance) 10 mg DAILY PO 01/30/24 10:00 01/30/24 08:37 Potassium Chloride 100 ml @ 50 mls/hr Q2H IV 01/30/24 09:00 01/30/24 12:59 Review of Systems Constitutional: No symptom reported Ears, Nose, & Throat: No symptom reported Eyes: No symptom reported Neurological: Dizziness, blurry vision, MCKEON Pulmonary/Respiratory: No symptom reported Cardiovascular: No symptom reported Gastrointestinal: Polydipsia Genitourinary: Polyuria Musculoskeletal: No symptom reported Skin: No symptom reported Psychiatric: No symptom reported Endocrine: No symptom reported Hemotologic/Lymphatic: No symptom reported Vital Signs Vital Signs Date Time Temp Pulse Resp B/P (MAP) Pulse Ox O2 Delivery O2 Flow Rate FiO2 01/30/24 09:19 98.8 80 18 113/68 (83) 93 98.8 01/30/24 06:58 Room Air 0.0 01/30/24 06:58 21 Physical Exam General Appearance: Cooperative. Obese. In no acute distress Head Exam: Normal inspection Neck Exam: Normal inspection. Non-tender. Normal alignment Pulmonary/Respiratory: Chest non-tender. Clear bilateral breath sounds. Found snoring Cardiovascular/Chest: Regular rate and rhythm. S1, S2. Sinus rhythm with inferolateral ST depression, LVH, NYA. No murmurs. No JVD. Peripheral Pulses: 2+ Radial (R). 2+ Radial (L). 2+ Pedal (R). 2+ Pedal (L) Abdominal Exam: Normal bowel sounds. Soft. Nontender. No hepatospenomegaly. No masses Ankle Exam: Negative ankle edema Lower extremities: Negative lower extremity edema Neuro/Mental Status: A&O x4. Coherent Thoughts/Psych: Normal thought pattern. Appropriate mood and affect. Good judgement and insight Appearance: In no acute distress Skin Exam: Normal inspection. Normal color. Warm. Dry Labs/Diagnostic Data Labs Test 01/30/24 06:18 01/30/24 06:02 01/29/24 09:02 01/29/24 00:00 Range/Units POC Glucose 171 H 70-106 mg/dl White Blood Count 12.8 H 4.4-10.8 10^3/uL Red Blood Count 4.38 4.0-5.20 10^6/uL Hemoglobin 12.3 12.2-16.2 g/dL Hematocrit 37.1 36.0-46.0 % Mean Corpuscular Volume 84.8 80.0-100.0 fL Mean Corpuscular Hemoglobin 28.1 28.0-32.0 pg Mean Corpuscular Hemoglobin Concent 33.1 32.0-36.0 g/dL Red Cell Distribution Width 14.8 H 11.8-14.3 % Platelet Count 247 140-450 10^3/uL Mean Platelet Volume 9.4 6.9-10.8 fL Neutrophils (%) (Auto) 59.5 37.0-80.0 % Lymphocytes (%) (Auto) 33.0 10.0-50.0 % Monocytes (%) (Auto) 5.7 0.0-12.0 % Eosinophils (%) (Auto) 1.4 0.0-7.0 % Basophils (%) (Auto) 0.4 0.0-2.0 % Neutrophils # (Auto) 7.6 1.6-8.6 10 ^3/uL Lymphocytes # (Auto) 4.2 0.4-5.4 10 ^3/uL Monocytes # (Auto) 0.7 0-1.3 10 ^3/uL Eosinophils # (Auto) 0.2 0-0.8 10 ^3/uL Basophils # (Auto) 0.1 0-0.2 10 ^3/uL Nucleated Red Blood Cells 0.0 % Sodium Level 142 136-145 mmol/L Potassium Level 3.3 L 3.5-5.1 mmol/L Chloride Level 106 98-107 mmol/L Carbon Dioxide Level 26 20-31 mmol/L Anion Gap 10 5-15 Blood Urea Nitrogen 11 9-23 mg/dL Creatinine 0.94 0.550-1.02 mg/dL Glomerular Filtration Rate Calc 75 >90 mL/min BUN/Creatinine Ratio 11.7 10.0-20.0 Serum Glucose 155 H 74-106 mg/dL Calcium Level 9.3 8.7-10.4 mg/dL Total Bilirubin 0.8 0.2-1.0 mg/dL Aspartate Amino Transferase (AST) 69 H 13-40 U/L Alanine Aminotransferase (ALT) 84 H 7-40 U/L Alkaline Phosphatase 93 46-116 U/L Total Protein 7.0 5.7-8.2 g/dL Albumin 3.9 3.2-4.8 g/dL Hemoglobin A1c 9.7 H <5.7 % A1C B-Type Natriuretic Peptide 38.68 0-100 pg/mL Thyroid Stimulating Hormone (TSH) 3.01 0.55-4.78 uIU/mL Urine Color Colorless Yellow Urine Clarity Turbid H Clear Urine pH 5.5 5.0-9.0 Urine Specific Causey 1.031 1.001-1.035 Urine Protein Trace H Negative Urine Ketones Trace Negative Urine Blood Negative Negative /uL Urine Nitrite Negative Negative Urine Bilirubin Negative Negative Urine Urobilinogen Normal Negative mg/dL Urine Leukocyte Esterase Negative Negative /uL Urine RBC 16 0 - 4 /hpf Urine WBC 8 0 - 5 /hpf Urine Squamous Epithelial Cells Mod <5 /hpf Urine Bacteria Many H None Seen /hpf Urine Glucose 4+ H Normal mg/dL Test 01/28/24 21:10 01/28/24 21:08 Range/Units Magnesium Level 2.1 1.6-2.6 mg/dL Blood Gas Specimen Type Venous Blood Gas Sample Site Vbg - n/a Blood Gas Patient Temperature 37.0 Arterial Blood Date Drawn [id number] Diaz Test N/a Venous Blood pH 7.471 H 7.320-7.430 Venous Blood pCO2 at Patient Temp 41.6 38.0-54.0 mmHg Venous Blood pO2 at Patient Temp < 36.5 23.0-48.0 mmHg Venous Blood HCO3 29.7 H 22.0-29.0 mmol/L Venous Bld O2 Saturation (Measured) 45.4 L 60.0-85.0 % Venous Blood Base Excess 5.5 H -2.0-3.0 mmol/L Venous Blood Total Hemoglobin 14.7 12.0-16.0 g/dL Venous Blood Oxyhemoglobin 44.8 0.0-79.0 % Venous Blood Carboxyhemoglobin 0.9 0.5-1.5 % Venous Blood Methemoglobin 0.5 0.0-1.5 % Blood Gas Modality Room air FiO2 % 21.0 Assessment Chronic compensated HFmrEF, newly diagnosed Diabetes mellitus, uncontrolled HgbA1C 9.7%, newly diagnosed Hypertensive urgency Hypokalemia rule out primary aldosteronism Rule out acute CVA Possible SRAVANI Morbid obesity Plan/Recommendation (Dr. Fairbanks) The patient underwent a transthoracic echocardiogram revealing an EF of 45-50%. She is cardiac stable and chest pain-free. She underwent a nonischemic stress test last year. We recommend aggressive blood pressure control with GDMT for borderline HFmrEF. Given presence of hypokalemia screen for hyperaldosteronism with a plasma aldosterone/renin ratio. Given acute dizziness, visual disturbances, and MCKEON with history of CVA, obtain a head CT to rule out acute processes. Continue tight glycemic control. Follow-up with a repeat echocardiogram in three months. There is no further cardiac workup indicated at this time. Kindly call with any questions or concerns. Thank you for allowing us to participate in this patient's care. This medical document was created using an electronic medical record system with voice recognition software and computerized dictation system. Although this document has been carefully reviewed, there might still be some phonetic and typographical errors. Occasional wrong-word or ``sound-alike substitutions may have occurred due to the inherent limitations of voice recognition software. These areas are purely typographical due to imperfections of the software programs and do not reflect any compromise in the patient's medical care. Please read the chart carefully and recognize, using context, where these substitutions have occurred. Plan discussed with: Patient, Other Date of Service: Jan 30, 2024 Billing Provider: JIGAR FAIRBANKS MD Cardiology Common Codes: [id number] INP/OBS CARE (High) MARILYN WYATT GUSSET RIPPER Jan 30, 2024 10:58
[2024-01-30] MEDS: IOHEXOL 300 MG/ML 100ML BOTTLE IJ ONE (13:18)
--- NOTE | 2024-01-30 14:42 | DVH ---
EXAM: CT HEAD WITHOUT CONTRAST HISTORY: Dizziness and blurry vision COMPARISON: None TECHNIQUE: Axial images of the head were obtained and reformatted in coronal and sagittal planes. All CT scans at this medical facility are performed using dose modulation techniques as appropriate t o a performed exam including the following: Automated exposure control was utilized; adjustment of th e MA and/or KV according to patient size; and use of iterative reconstruction technique. CT Dose: CTDI volume is 60.96 mGy. Dose-length product is 977.07 mGy*cm FINDINGS: There is no evidence of acute intracranial hemorrhage, mass, mass effect midline shift. There is no h ydrocephalus or extra-axial fluid collection. Note is made of eduin cisterna magnum. There is a small chronic infarct anteromedial to of the right thalamus. There are patchy hypodense areas in the periv entricular white matter likely related chronic microvascular ischemic changes. The visualized paranasal sinuses and mastoid air cells are clear. The calvarium is intact. IMPRESSION: 1. There is no acute intracranial process. 2. Small chronic infarct anteromedial to the right thalamus. HS:Y
--- NOTE | 2024-01-30 14:59 | DVHPNRES ---
Progress Note Date Seen: Jan 30, 2024 Resident Creating Document: ALEJO BROWNING RESIDENT Has the PT tested + for MRSA If YES, has PT been informed?: No Medical Necessity Reason Pt with a Central, PICC or Fol: No Subjective Review of Systems A 48-year-old female with past medical history of hypertension, CVA, cardiac arrest at surgery and sleep apnea come to the hospital due to blurry vision dizziness headache weakness fatigue blood sugars were found at admission above 500 also blood pressure was found elevated 230/130 Patient denied history of diabetes or heart failure Home meds diltiazem hydrochlorothiazide lisinopril spironolactone Objective vital signs Vital Sign Date Time Temp Pulse Resp B/P (MAP) Pulse Ox O2 Delivery O2 Flow Rate FiO2 01/30/24 13:00 78 146/86 01/30/24 13:00 97.4 18 96 97.4 01/30/24 08:00 Room Air* 0 21 Total Intake and Output 01/29/24 01/29/24 01/30/24 15:00 23:00 07:00 Intake Total 850 ml 980 ml Balance 850 ml 980 ml medications Current Medications Medications Dose Ordered Sig/Juan C Route Start Time Stop Time Status Last Admin Dose Admin Metoprolol Tartrate 25 mg BID PO 01/29/24 10:00 01/30/24 08:36 25 MG Ibuprofen 600 mg Q6HP PRN PO 01/29/24 01:00 Acetaminophen/ Hydrocodone Bitart 1 tab Q4HP PRN PO 01/29/24 01:00 Docusate Sodium 100 mg BIDPRN PRN PO 01/29/24 01:00 Morphine Sulfate 2 mg Q4HPRN PRN IV 01/29/24 01:00 01/29/24 20:39 2 MG Ceftriaxone Sodium 50 ml @ 100 mls/hr DAILY@2100 IV 01/29/24 21:00 01/29/24 21:43 100 MLS/HR Insulin Glargine 15 units HS SC 01/29/24 22:00 01/29/24 22:11 15 UNITS Insulin Human Lispro 5 units TIDAC SC 01/29/24 17:00 01/30/24 11:47 5 UNITS Diagnostic Test (Pha) 1 strip ACHS 01/29/24 17:00 01/30/24 11:47 1 STRIP Insulin Human Regular ACHS SC 01/29/24 17:00 01/30/24 11:47 4 UNITS Dextrose 50 ml UD PRN IV 01/29/24 15:00 Enoxaparin Sodium 40 mg DAILY SC 01/30/24 10:00 01/30/24 08:36 40 MG Lisinopril 40 mg DAILY PO 01/30/24 10:00 01/30/24 08:38 40 MG Spironolactone 50 mg DAILY PO 01/30/24 10:00 01/30/24 08:37 50 MG Empaglifozin 10 mg DAILY PO 01/30/24 10:00 01/30/24 08:37 10 MG Potassium Chloride 40 meq DAILY PO 01/31/24 10:00 Examination GEN: Healthy appearing, well-developed, NAD. PSYCH: Good Judgment. AOx3. Normal memory, mood, and affect. HEENT -Head: normocephalic atraumatic, no facial trauma, neck is supple -Eyes: PERRL, EOMI. No discharge or redness; -Ears: External ears are normal. Normal TMs. -Nose: Normal nares. -Mouth and throat: MMM. Normal gums, mucosa, palate,. Good dentition. NECK: Supple, with no masses. CV: RRR, no m/r/g. LUNGS: respiratory effort normal, speaks in full sentences, no tripod position, no accessory muscle use. Lungs clear to auscultation without rhonchi, wheezes, rales ABD: Soft, ND/NT. No evidence of fluid wave. No pulsatile masses on exam, rebound tenderness, De Luna sign or pain over Mcburney's point. : N/A SKIN: Warm, well perfused. No skin rashes or abnormal lesions. MSK: No deformities or signs of scoliosis. Normal gait. EXT: No clubbing, cyanosis, or edema. NEURO: Ambulating with no limitations. Normal muscle strength and tone. No focal deficits. laboratory and microbiology Laboratory Tests 01/30/24 06:02 Test 01/30/24 06:02 Range/Units Serum Glucose 155 H 74-106 mg/dL Microbiology Date/Time Source Procedure Growth Status 01/29/24 16:17 Voided Urine Urine Culture - Preliminary Resulted Problem List/Assessment/Plan Problem List/Assessment/Plan #New onset DM type 2 hba1c 9.7 #Hypokalemia #Chronic compensated systolic and diastolic HFmrEF, newly diagnosed #Ruled out acute CVA #Small chronic infarct anteromedial to the right thalamus. #SRAVANI #Morbid obesity #UTI? ECHO : MODERATE DEGREE LVH AND MODERATE DEGREE LV DIASTOLIC DYSFUNCTION LV EJECTION FRACTION IS 45% AND IS BORDERLINE REDUCED MODERATE DEGREE LV DIASTOLIC DYSFUNCTION ASSOCIATED WITH MILD SYSTOLIC DYSFUNCTION NORMAL VALVES NO EFFUSION MODERATE DEGREE PULMONARY HYPERTENSION RVSP IS 50 MM OF HG AND IS MODERATELY HIGH NORMAL RV FUNCTION Head CT scan: Small chronic infarct anteromedial to the right thalamus. BNP normal Plan: Adjust insulin: lantus 18 ui, lispro 5 tid HF meds: metoprolol 25 mg BID, jardiance 10 mg daily, spironolactone 50 mg daily 2 prevention of stroke: aspirin and statin Possible UTI: ceftriaxone BP meds: metoprolol 25 mg BID, lisinopril 40 mg PO K IV + Bipap at night Case discussed with Dr Barlow Time spent on care 23 min Plan discussed with: Patient, Other (rn) My Orders My Orders Orders - ALEJO BROWNING Procedure Category Date Status Time Urine Bacterial MIGUEL ANGEL 01/29/24 In Process Culture 16:09 Enoxaparin Sodium PHA 01/30/24 In Process (Lovenox) 10:00 Lisinopril Tablet PHA 01/30/24 In Process (Zestril Tablet) 10:00 Spironolactone PHA 01/30/24 In Process (Aldactone) 10:00 Empagliflozin PHA 01/30/24 In Process (Jardiance) 10:00 * Cardiology Consult CONS 01/30/24 Transmitted 10:03 Date of Service: Jan 30, 2024 Billing Provider: DUKE BARLOW MD Common Visit Codes: [id number] INP/OBS CARE(HIGH) ALEJO BROWNING RESIDENT Jan 30, 2024 14:59 DUKE BARLOW MD Feb 01, 2024 08:12
[2024-01-30] MEDS: POTASSIUM CHL 20 Meq TABLET PO ONE (16:45)
[2024-01-30] MEDS: IBUPROFEN 600 MG TAB PO PRN (18:30)
[2024-01-30] MEDS: ATORVASTATIN 20 MG TAB PO SCH (21:47)
[2024-01-30] MEDS: INSULIN LANTUS (GLARGINE) 1 /0.01ml (100units/ml) SC SCH (22:10)
[2024-01-31] VITALS (7 sets, daily range): BP systolic 128–162; BP diastolic 82–95; PULSE 72–88; RESP 17–19; TEMP 97.9–98.7; O2SAT 94–97
[2024-01-31 06:28] LABS: Basophils # (auto) 0 10 ^3/uL (0-0.2); Basophils % (auto) 0.4 % (0.0-2.0); Eosinophils # (auto) 0.1 10 ^3/uL (0-0.8); Eosinophils % (auto) 1.1 % (0.0-7.0); Hematocrit 36.6 % (36.0-46.0); Hemoglobin 12.2 g/dL (12.2-16.2); Lymphocytes # (auto) 3.2 10 ^3/uL (0.4-5.4); Lymphocytes % (auto) 27.8 % (10.0-50.0); Mean Corpuscular Hemoglobin 28.1 pg (28.0-32.0); Mean Corpuscular Hgb Conc. 33.2 g/dL (32.0-36.0); Mean Corpuscular Volume 84.7 fL (80.0-100.0); Monocytes # (auto) 0.7 10 ^3/uL (0-1.3); Monocytes % (auto) 5.8 % (0.0-12.0); Neutrophils # (auto) 7.5 10 ^3/uL (1.6-8.6); Neutrophils % (auto) 64.9 % (37.0-80.0); Platelet Count (auto) 249 10^3/uL (140-450); Red Blood Cells 4.32 10^6/uL (4.0-5.20); White Blood Cell 11.5 10^3/uL (4.4-10.8)
[2024-01-31 06:30] LABS: Alanine Aminotransferase 69 U/L (7-40); Albumin 3.8 g/dL (3.2-4.8); Alkaline Phosphatase 93 U/L (46-116); Anion Gap 8 (5-15); Aspartate Aminotransferase 46 U/L (13-40); BUN/Creatinine Ratio 9.9 (10.0-20.0); Blood Urea Nitrogen 9 mg/dL (9-23); Calcium 9.2 mg/dL (8.7-10.4); Carbon Dioxide 29 mmol/L (20-31); Chloride 107 mmol/L (98-107); Glucose 136 mg/dL (74-106); Potassium 3.4 mmol/L (3.5-5.1); Sodium 144 mmol/L (136-145)
[2024-01-31 06:31] LABS: Bilirubin, Total 0.8 mg/dL (0.2-1.0); Total Protein 6.9 g/dL (5.7-8.2)
[2024-01-31] MEDS: POTASSIUM CHL 20MEQ/100ML 100 ML IV SCH (07:02)
[2024-01-31] MEDS: ASPirin 81 mg TAB PO SCH (09:19)
[2024-01-31] MEDS: POTASSIUM CHL 20 Meq TABLET PO SCH (09:20)
[2024-01-31] MEDS: HYDROcodone-ACET 5/325MG TAB PO PRN (09:29)
[2024-01-31 11:59] LABS: Amphetamine Screen, Urine Neg (NEGATIVE); Barbiturate Scree,Urine Neg (NEGATIVE)
[2024-01-31 12:00] LABS: Benzodiazephine Screen, Urine Neg (NEGATIVE); Cocaine Screen, Urine Neg (NEGATIVE); Opiate Scree,Urine Neg (NEGATIVE)
[2024-01-31 12:01] LABS: Cannabinoid Screen, Urine Neg (NEGATIVE); Phencyclidine Screen, Urine Neg (NEGATIVE)
[2024-01-31] MEDS ORDERED: LISI20TA56 PO (13:38)
[2024-01-31] MEDS ORDERED: ATOR20TA50 PO (13:38)
[2024-01-31] MEDS ORDERED: ASPI-325 PO (13:38)
[2024-01-31] MEDS ORDERED: SPIR25TA PO (13:38)
[2024-01-31] MEDS ORDERED: MET25T PO (13:38)
[2024-01-31] MEDS ORDERED: INSLANTI SC (13:38)
[2024-01-31] MEDS ORDERED: EMPA1TAB PO (13:38)
[2024-01-31] MEDS ORDERED: METF-370 PO (13:38)
[2024-01-31] MEDS ORDERED: BLOO1KIT60 XX (13:44)
--- NOTE | 2024-01-31 17:12 | DVHDSRES ---
Discharge Summary Date of Admission Resident Creating Document: ALEJO BROWNING RESIDENT Jan 29, 2024 at 02:12 Date of Discharge: Jan 31, 2024 Admitting Diagnosis newly diagnosed HF Labs/Diagnostic Data: Laboratory Results Test 01/31/24 12:20 01/31/24 10:55 01/31/24 05:41 01/31/24 04:00 POC Glucose 141 mg/dl (70-106) Urine Opiates Screen Neg (NEGATIVE) Urine Fentanyl Screen Neg (NEGATIVE) Urine Barbiturates Screen Neg (NEGATIVE) Urine Phencyclidine Screen Neg (NEGATIVE) Urine Amphetamines Screen Neg (NEGATIVE) Urine Benzodiazepines Screen Neg (NEGATIVE) Urine Cocaine Screen Neg (NEGATIVE) Urine Cannabinoids Screen Neg (NEGATIVE) White Blood Count 11.5 10^3/uL (4.4-10.8) Red Blood Count 4.32 10^6/uL (4.0-5.20) Hemoglobin 12.2 g/dL (12.2-16.2) Hematocrit 36.6 % (36.0-46.0) Mean Corpuscular Volume 84.7 fL (80.0-100.0) Mean Corpuscular Hemoglobin 28.1 pg (28.0-32.0) Mean Corpuscular Hemoglobin Concent 33.2 g/dL (32.0-36.0) Red Cell Distribution Width 15.0 % (11.8-14.3) Platelet Count 249 10^3/uL (140-450) Mean Platelet Volume 9.4 fL (6.9-10.8) Neutrophils (%) (Auto) 64.9 % (37.0-80.0) Lymphocytes (%) (Auto) 27.8 % (10.0-50.0) Monocytes (%) (Auto) 5.8 % (0.0-12.0) Eosinophils (%) (Auto) 1.1 % (0.0-7.0) Basophils (%) (Auto) 0.4 % (0.0-2.0) Neutrophils # (Auto) 7.5 10 ^3/uL (1.6-8.6) Lymphocytes # (Auto) 3.2 10 ^3/uL (0.4-5.4) Monocytes # (Auto) 0.7 10 ^3/uL (0-1.3) Eosinophils # (Auto) 0.1 10 ^3/uL (0-0.8) Basophils # (Auto) 0 10 ^3/uL (0-0.2) Nucleated Red Blood Cells 0.0 % Sodium Level 144 mmol/L (136-145) Potassium Level 3.4 mmol/L (3.5-5.1) Chloride Level 107 mmol/L (98-107) Carbon Dioxide Level 29 mmol/L (20-31) Anion Gap 8 (5-15) Blood Urea Nitrogen 9 mg/dL (9-23) Creatinine 0.91 mg/dL (0.550-1.02) Glomerular Filtration Rate Calc 78 mL/min (>90) BUN/Creatinine Ratio 9.9 (10.0-20.0) Serum Glucose 136 mg/dL (74-106) Calcium Level 9.2 mg/dL (8.7-10.4) Total Bilirubin 0.8 mg/dL (0.2-1.0) Aspartate Amino Transferase (AST) 46 U/L (13-40) Alanine Aminotransferase (ALT) 69 U/L (7-40) Alkaline Phosphatase 93 U/L (46-116) Total Protein 6.9 g/dL (5.7-8.2) Albumin 3.8 g/dL (3.2-4.8) Test 01/30/24 14:30 01/29/24 09:02 01/29/24 00:00 01/28/24 21:10 Hemoglobin A1c 9.7 % A1C (<5.7) B-Type Natriuretic Peptide 38.68 pg/mL (0-100) Thyroid Stimulating Hormone (TSH) 3.01 uIU/mL (0.55-4.78) Urine Color Colorless (Yellow) Urine Clarity Turbid (Clear) Urine pH 5.5 (5.0-9.0) Urine Specific [place] 1.031 (1.001-1.035) Urine Protein Trace (Negative) Urine Ketones Trace (Negative) Urine Blood Negative /uL (Negative) Urine Nitrite Negative (Negative) Urine Bilirubin Negative (Negative) Urine Urobilinogen Normal mg/dL (Negative) Urine Leukocyte Esterase Negative /uL (Negative) Urine RBC 16 /hpf (0 - 4) Urine WBC 8 /hpf (0 - 5) Urine Squamous Epithelial Cells Mod /hpf (<5) Urine Bacteria Many /hpf (None Seen) Urine Glucose 4+ mg/dL (Normal) Magnesium Level 2.1 mg/dL (1.6-2.6) Test 01/28/24 21:08 Blood Gas Specimen Type Venous Blood Gas Sample Site Vbg - n/a Blood Gas Patient Temperature 37.0 Arterial Blood Date Drawn [id number] Diaz Test N/a Venous Blood pH 7.471 (7.320-7.430) Venous Blood pCO2 at Patient Temp 41.6 mmHg (38.0-54.0) Venous Blood pO2 at Patient Temp < 36.5 mmHg (23.0-48.0) Venous Blood HCO3 29.7 mmol/L (22.0-29.0) Venous Bld O2 Saturation (Measured) 45.4 % (60.0-85.0) Venous Blood Base Excess 5.5 mmol/L (-2.0-3.0) Venous Blood Total Hemoglobin 14.7 g/dL (12.0-16.0) Venous Blood Oxyhemoglobin 44.8 % (0.0-79.0) Venous Blood Carboxyhemoglobin 0.9 % (0.5-1.5) Venous Blood Methemoglobin 0.5 % (0.0-1.5) Blood Gas Modality Room air FiO2 % 21.0 Other Laboratory Tests 01/31/24 05:41 01/31/24 04:00 Brief Hx & Hospital Course: A 48-year-old female with a past medical history of hypertension, CVA, cardiac arrest during surgery, and sleep apnea presented with blurry vision, dizziness, headache, and weakness. On admission, her blood pressure was 230/130 mmHg, and blood glucose was over 500 mg/dL, leading to a diagnosis of new-onset type 2 diabetes mellitus with HbA1c of 9.7%. 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 She was started on insulin therapy for glycemic control, GDMT for heart failure management, aspirin and statin for secondary prevention of stroke, and ceftriaxone for possible UTI. The patient is stable at discharge with improved blood glucose and blood pressure. She will begin insulin therapy for diabetes and GDMT for heart failure. Aggressive blood pressure control and lifestyle interventions for weight loss are strongly advised, given her morbid obesity and cardiovascular risk profile. The patient is counseled on close outpatient follow-up with [facility] for ongoing management of her chronic conditions. Urine culture was contaminated. No need of AB at home. Case discussed with Dr Barlow Time spent on care 23 min Consults/Reason for consult cardiology: newly diagnosed HF Operations or Procedures Axial images of the head were obtained and reformatted in coronal and sagittal planes. All CT scans at this medical facility are performed using dose modulation techniques as appropriate to a performed exam including the following: Automated exposure control was utilized; adjustment of the MA and/or KV according to patient size; and use of iterative reconstruction technique. CT Dose: CTDI volume is 60.96 mGy. Dose-length product is 977.07 mGy*cm FINDINGS: There is no evidence of acute intracranial hemorrhage, mass, mass effect midline shift. There is no hydrocephalus or extra-axial fluid collection. Note is made of eduin cisterna magnum. There is a small chronic infarct anteromedial to of the right thalamus. There are patchy hypodense areas in the periventricular white matter likely related chronic microvascular ischemic changes. The visualized paranasal sinuses and mastoid air cells are clear. The calvarium is intact. IMPRESSION: 1. There is no acute intracranial process. 2. Small chronic infarct anteromedial to the right thalamus. EXAM: Two-dimensional and M-mode echocardiogram with Doppler and color Doppler. Blood Pressure: 180/95 mmHg INDICATION Rule out CHF RISK FACTORS Height: 5' 6", Weight: 233 DIMENSIONS LVDd 5.6 (3.8-5.7cm) LA (2D) 4.4 (1.9-4.0cm) Aortic Root 3.5 (2.0- 3.7cm) LVDs 4.3 (2.5-4.0cm) LA (MM) (1.9-4.0cm) Aortic Cusp Exc 1.9 (1.5- 2.0cm) EF (%) 45.0 (55-70%) Rt. Atrium 4.4 (1.9-4.0cm) Asc. Aorta cm IVSd 1.7 (0.7-1.1cm) RV (D) (1.8-2.4cm) PWd 1.6 (0.7-1.1cm) Mitral Valve Mitral Mitral Stenosis E wave 1.20m/s MV Mean GR. mmHg A wave 1.00m/s MV Peak GR. mmHg E/A ratio 1.2 2D MVA cm2 Aortic Valve Aortic Valve Aortic Stenosis V1 0.90m/s AO Mean GR. 8mmHg V2 1.70m/s AO Peak GR. 12mmHg LVOT Diameter 2.3 (1.8-2.4cm) Doppler KAY 2.20cm2 Pulmonic Valve V2 0.80m/s Tricuspid Valve TR Velocity 3.10m/s RVSP 50mmHg Conclusion MODERATE DEGREE LVH AND MODERATE DEGREE LV DIASTOLIC DYSFUNCTION LV EJECTION FRACTION IS 45% AND IS BORDERLINE REDUCED MODERATE DEGREE LV DIASTOLIC DYSFUNCTION ASSOCIATED WITH MILD SYSTOLIC DYSFUNCTION NORMAL VALVES NO EFFUSION MODERATE DEGREE PULMONARY HYPERTENSION RVSP IS 50 MM OF HG AND IS MODERATELY HIGH NORMAL RV FUNCTION Condition at Discharge: Stable Final Diagnosis/Problems List #New onset DM type 2 hba1c 9.7 #Hypokalemia resolved #Chronic compensated systolic and diastolic HFmrEF, newly diagnosed #Ruled out acute CVA #Small chronic infarct anteromedial to the right thalamus. #SRAVANI #Morbid obesity #UTI ruled out Discharge Disposition: Home Discharge Instruct/Medications Diet: Consistent carbohydrate, Cardiac 2g Na,low cholest Activity: Light activity Follow Up/Referral: fu with [facility] DR BACK Medications: see prescriptions Discharge Statement: "Patient was advised to return to the ER or call 911 if any headaches, dizziness, shortness of breath, chest pain, abdominal pain, bleeding, fevers, or worsening of medical condition. Patient was counseled about treatment plan, medications, possible side effects, patientverbalized understanding. All questions were answered to the best of my ability. This discharge took greater then 30 minutes in planning, reviewing documentation, counseling the patient, and discussing with other team members." ASSESSMENT ASSESSMENT Assessment new diagnosis DM, HF Date of Service: Jan 31, 2024 Billing Provider: DUKE BARLOW MD Common Visit Codes: 83376-IQP/OBS DISCH DAY >30min ALEJO BROWNING Jan 31, 2024 17:12 DUKE BARLOW MD Feb 01, 2024 08:12
[2024-02-01] MEDS ORDERED: INSUINJ37 SC (13:46)
== END 2024-01-31 17:02 | disposition home or self-care (01) | DRG 638 ==
LOC: ER 20:27 → TELE 01-29 02:12 → TELE-E-ADS 01-29 04:35
PROVIDERS: ADMIT Student in an Organized Health Care Education/Training Program
PROC: 5A09357 Assistance with Respiratory Ventilation, Less than 24 Consecutive Hours, Continuous Positive Airway Pressure (ICD-10-PCS; principal; 2024-01-29)
PROC: 5A09357 Assistance with Respiratory Ventilation, Less than 24 Consecutive Hours, Continuous Positive Airway Pressure (ICD-10-PCS; 2024-01-30)
DX: E11.65 Type 2 diabetes mellitus with hyperglycemia (principal); I50.22 Chronic systolic (congestive) heart failure; I16.0 Hypertensive urgency; D72.829 Elevated white blood cell count, unspecified; R74.8 Abnormal levels of other serum enzymes; E87.6 Hypokalemia; E66.01 Morbid (severe) obesity due to excess calories; I11.0 Hypertensive heart disease with heart failure; G47.33 Obstructive sleep apnea (adult) (pediatric); G43.909 Migraine, unspecified, not intractable, without status migrainosus; Z86.73 Personal history of transient ischemic attack (TIA), and cerebral infarction without residual deficits; Z90.710 Acquired absence of both cervix and uterus; Z82.49 Family history of ischemic heart disease and other diseases of the circulatory system; Z82.0 Family history of epilepsy and other diseases of the nervous system; Z86.74 Personal history of sudden cardiac arrest; Z68.38 Body mass index [BMI] 38.0-38.9, adult; Z79.4 Long term (current) use of insulin
CPT/HCPCS: 36415; 36600; 70450; 71045; 80053; 80307; 81001; 82088; 82805; 82962; 83036; 83735; 83880; 84244; 84443; 85025; 87086; 93306; 94660; 96360; 99291; G0378; J1815; J2003; J2405; J3480

== ENCOUNTER → 2024-03-21 | Outpatient (CLI) | payer OTHER ==
[~2024-03-21] MED LIST: ASPI-325 PO; ATOR20TA50 PO; BLOO1KIT60 XX; EMPA1TAB PO; INSLANTI SC; INSUINJ37 SC; LISI20TA56 PO; LISI40TA16 PO; MET25T PO; METF-370 PO; SPIR25TA PO; SPIR25TA8 PO
[2024-03-21 14:37] LABS: Chloride 104 mmol/L (98-107); Potassium 3.6 mmol/L (3.5-5.1); Sodium 139 mmol/L (136-145)
[2024-03-21 14:38] LABS: Anion Gap 7 (5-15); Carbon Dioxide 28 mmol/L (20-31)
[2024-03-21 14:43] LABS: Glucose 98 mg/dL (74-106)
[2024-03-21 14:44] LABS: BUN/Creatinine Ratio 14.4 (10.0-20.0); Blood Urea Nitrogen 15 mg/dL (9-23); Calcium 10.5 mg/dL (8.7-10.4)
== END | disposition home or self-care (01) ==
LOC: LAB 14:14
PROVIDERS: ATTEND Internal Medicine
DX: E11.65 Type 2 diabetes mellitus with hyperglycemia (principal)
CPT/HCPCS: 36415; 80048

== ENCOUNTER 2024-04-30 15:10 | Emergency (ER) | payer OTHER ==
[~2024-04-30] VITALS: Ht 170.2 cm; Wt 99.9 kg
--- NOTE | 2024-04-30 15:37 | ECG ---
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
[2024-04-30 16:20] VITALS: PULSE 105; RESP 16; O2SAT 98
--- NOTE | 2024-04-30 16:23 | DVH ---
EXAM: XY CHEST XRAY 1 VIEW TECHNIQUE: Single frontal chest radiograph CLINICAL HISTORY: sob COMPARISON: XY CHEST XRAY 1 VIEW on DOS: 01/29/24 Findings/Impression: Frontal chest radiograph demonstrates no acute osseous or superficial soft tissue abnormalities. The trachea is midline. The cardiac silhouette and mediastinum are within normal limits. Bibasilar atelectasis. No pneumothorax, pleural effusions, or consolidations.
[2024-04-30] MEDS: cloNIDine HCL 0.1 MG TAB PO ONE (16:30)
[2024-04-30 16:31] LABS: Basophils # (auto) 0.1 10 ^3/uL (0-0.2); Basophils % (auto) 0.5 % (0.0-2.0); Eosinophils # (auto) 0.4 10 ^3/uL (0-0.8); Eosinophils % (auto) 2.9 % (0.0-7.0); Hematocrit 44.8 % (36.0-46.0); Hemoglobin 14.8 g/dL (12.2-16.2); Lymphocytes # (auto) 4.4 10 ^3/uL (0.4-5.4); Lymphocytes % (auto) 36.2 % (10.0-50.0); Mean Corpuscular Hemoglobin 27.8 pg (28.0-32.0); Mean Corpuscular Volume 84.2 fL (80.0-100.0); Monocytes # (auto) 0.7 10 ^3/uL (0-1.3); Monocytes % (auto) 5.9 % (0.0-12.0); Neutrophils # (auto) 6.7 10 ^3/uL (1.6-8.6); Neutrophils % (auto) 54.5 % (37.0-80.0); Nucleated Red Blood Cells % 0.2 %; Platelet Count (auto) 328 10^3/uL (140-450); Red Blood Cells 5.32 10^6/uL (4.0-5.20); Red Cell Distribution Width 15.3 % (11.8-14.3); White Blood Cell 12.3 10^3/uL (4.4-10.8)
[2024-04-30 16:47] LABS: Alkaline Phosphatase 108 U/L (46-116); Anion Gap 10 (5-15); Aspartate Aminotransferase 25 U/L (13-40); BUN/Creatinine Ratio 10.3 (10.0-20.0); Bilirubin, Total 0.7 mg/dL (0.2-1.0); Blood Urea Nitrogen 10 mg/dL (9-23); Carbon Dioxide 26 mmol/L (20-31); Chloride 103 mmol/L (98-107); Potassium 3.7 mmol/L (3.5-5.1); Sodium 139 mmol/L (136-145)
[2024-04-30 17:00] LABS: Alanine Aminotransferase 50 U/L (7-40); Albumin 4.9 g/dL (3.2-4.8); Calcium 10.8 mg/dL (8.7-10.4); Glucose 113 mg/dL (74-106); Total Protein 8.7 g/dL (5.7-8.2)
[2024-04-30 19:03] VITALS: BP 149/97; PULSE 94; RESP 16; TEMP 97.4; O2SAT 100
[2024-04-30] MEDS ORDERED: PROM1SOL4 PO (20:08)
[2024-04-30] MEDS ORDERED: AUG875T PO (20:08)
--- NOTE | 2024-04-30 20:08 | ED.PDOC ---
SOB-HPI HPI Comments 40-year-old female complaining of cough x1 week. States she was started feeling shortness a breath over the last two days. Says shortness breath comes on unprovoked lasting minutes and goes away. Patient was brought in history of high blood pressure and today. States patient has been having in her chest has been sharp in nature. She was nauseated cough. Says she was seen by urgent care week ago and no medications prescribed. States she has been coughing up phlegm. Upon triage, patient was in SVT at heart rate of 200 then calmed himself down to 100. EKG came back at 1:01 a.m. pulse rate. 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 GRADER Hx Family History Family History: Reviewed,noncontributory to illness Social History Smoker: Non-Smoker Alcohol: Denies ETOH Use Drugs: Denies Drug Use Lives In: Home Constitutional: denies: chills, diaphoresis, fatigue, fever, malaise, sweats, weakness, others EENTM: denies: blurred vision, double vision, ear bleeding, ear discharge, ear drainage, ear pain, ear ringing, eye pain, eye redness, hearing loss, mouth pain, mouth swelling, nasal discharge, nose bleeding, nose congestion, nose pain, photophobia, tearing, throat pain, throat swelling, voice changes, others Respiratory: reports: cough, SOB at rest, SOB with excertion; denies: hemoptysis, orthopnea, shortness of breath, stridor, wheezing, others Cardiovascular: reports: chest pain; denies: dizzy spells, diaphoresis, Dyspnea on exertion, edema, irregular heart beat, left arm pain, lightheadedness, palpitations, PND, syncope, others Gastrointestinal: denies: abdomen distended, abdominal pain, blood streaked bowels, constipated, diarrhea, dysphagia, difficulty swallowing, hematemesis, melena, nausea, poor appetite, poor fluid intake, rectal bleeding, rectal pain, vomiting, others Genitourinary: denies: abnormal vagina bleeding, burning, dyspareunia, dysuria, flank pain, frequency, hematuria, incontinence, pain, , vagina di scharge, urgency, others Neurological: denies: dizziness, fainting, headache, left sided numbness, left sided weakness, numbness, paresthesia, pre-existing deficit, right sided numbness, right sided weakness, seizure, speech problems, tingling, tremors, weakness, others Musculoskeletal: denies: back pain, gout, joint pain, joint swelling, muscle pain, muscle stiffness, neck pain, others Integumetry: denies: bruises, change in color, change in hair/nails, dryness, laceration, lesions, lumps, rash, wounds, others Allergic/Immunocompromised: denies: Difficulty Healing, Frequent Infections, Hives, Itching, others Hematologic/Lymphatic: denies: anemia, blood clots, easy bleeding, easy bruising, swollen glands, others Physical Exam General Appearance: No Apparent Distress, Normal HEENT: Normal ENT Inspection, Pharynx Normal, TMs Normal Neck: Full Range of Motion, Non-Tender, Normal, Normal Inspection Respiratory: Chest Non-Tender, Lungs Clear, No Accessory Muscle Use, No Respiratory Distress, Normal Breath Sounds Cardiovascular: No Edema, No JVD, No Murmur, No Gallop, Normal Peripheral Pulses, Regular Rate/Rhythm Breast Exam: Deferred Gastrointestinal: No Organomegaly, Non Tender, No Pulsatile Mass, Normal Bowel Sounds, Soft Genitalia: Deferred Pelvic: Deferred Rectal: Deferred Extremities: No calf tenderness, Normal capillary refill, Normal inspection, Normal range of motion, Non-tender, No pedal edema Musculoskeletal : Apperance: Normal Neurologic: Alert, whale trainer II-XII nml as Tested, No Motor Deficits, Normal Affect, Normal Mood, No Sensory Deficits Cerebellar Function: Normal Reflexes: Normal Skin: Dry, Normal Color, Warm Lymphatic: No Adenopathy Was a procedure done? Was a procedure done?: No Differential Dx Differential Diagnosis: Anxiety, Asthma, Bronchitis, Panic Attack, Pneumonia, Pulmonary Embolism, Respiratory Distress X-Ray, Labs, Meds, VS Vital Signs Date Time Temp Pulse Resp B/P (MAP) Pulse Ox O2 Delivery O2 Flow Rate FiO2 04/30/24 19:03 97.4 94 16 149/97 (114) 100 97.4 04/30/24 19:01 149/97 04/30/24 16:30 189/114 04/30/24 16:20 97.7 16 189/114 (139) 95 97.7 04/30/24 16:20 105 16 98 Room Air* 0 21 04/30/24 15:29 101 04/30/24 15:20 98.4 17 20 197/125 (149) 96 187/118 (141) Lab Test 04/30/24 17:30 04/30/24 15:58 Range/Units Troponin I High Sensitivity 7 7 </=34 ng/L White Blood Count 12.3 H 4.4-10.8 10^3/uL Red Blood Count 5.32 H 4.0-5.20 10^6/uL Hemoglobin 14.8 12.2-16.2 g/dL Hematocrit 44.8 36.0-46.0 % Mean Corpuscular Volume 84.2 80.0-100.0 fL Mean Corpuscular Hemoglobin 27.8 L 28.0-32.0 pg Mean Corpuscular Hemoglobin Concent 33.0 32.0-36.0 g/dL Red Cell Distribution Width 15.3 H 11.8-14.3 % Platelet Count 328 140-450 10^3/uL Mean Platelet Volume 8.5 6.9-10.8 fL Neutrophils (%) (Auto) 54.5 37.0-80.0 % Lymphocytes (%) (Auto) 36.2 10.0-50.0 % Monocytes (%) (Auto) 5.9 0.0-12.0 % Eosinophils (%) (Auto) 2.9 0.0-7.0 % Basophils (%) (Auto) 0.5 0.0-2.0 % Neutrophils # (Auto) 6.7 1.6-8.6 10 ^3/uL Lymphocytes # (Auto) 4.4 0.4-5.4 10 ^3/uL Monocytes # (Auto) 0.7 0-1.3 10 ^3/uL Eosinophils # (Auto) 0.4 0-0.8 10 ^3/uL Basophils # (Auto) 0.1 0-0.2 10 ^3/uL Nucleated Red Blood Cells 0.2 % Sodium Level 139 136-145 mmol/L Potassium Level 3.7 3.5-5.1 mmol/L Chloride Level 103 98-107 mmol/L Carbon Dioxide Level 26 20-31 mmol/L Anion Gap 10 5-15 Blood Urea Nitrogen 10 9-23 mg/dL Creatinine 0.97 0.550-1.02 mg/dL Glomerular Filtration Rate Calc 72 >90 mL/min BUN/Creatinine Ratio 10.3 10.0-20.0 Serum Glucose 113 H 74-106 mg/dL Calcium Level 10.8 H 8.7-10.4 mg/dL Total Bilirubin 0.7 0.2-1.0 mg/dL Aspartate Amino Transferase (AST) 25 13-40 U/L Alanine Aminotransferase (ALT) 50 H 7-40 U/L Alkaline Phosphatase 108 46-116 U/L B-Type Natriuretic Peptide 71.03 0-100 pg/mL Total Protein 8.7 H 5.7-8.2 g/dL Albumin 4.9 H 3.2-4.8 g/dL Current Medications Medications (Trade) Dose Ordered Sig/Juan C Route Start Time Stop Time Status Last Admin Clonidine HCl (Catapres Tablet) 0.2 mg ONCE ONCE PO 04/30/24 15:45 04/30/24 15:46 DC 04/30/24 16:30 X-Ray, Labs, Meds, VS Comment Imaging: X-rays and CT scans were reviewed and interpreted by this provider, imaging shows no fractures and no pathological disease. Pending radiology review. Laboratory: Labs reviewed and interpreted by this provider. No significant ab normalities noted. Patient has prior medical visits reviewed. Med reconciliation performed Vital signs reviewed Time of 1ST Reevaluation: 20:08 Reevaluation 1ST: Improved Patient Education/Counseling: Diagnosis, Treatment, Need For Follow Up (Patient advised to follow-up in the emergency room in the next 24 to 48 hours if symptoms do not improve. Advised follow-up with PCP in the next 3 to 5 days. Patient verbalized understanding. ) Family Education/Counseling: Diagnosis, Treatment Departure 1 Departure Time of Disposition: 20:06 Impression: Primary Impression: SVT (supraventricular tachycardia) Additional Impressions: Cough Qualified Codes: R05.1 - Acute cough Upper respiratory infection Qualified Codes: J06.9 - Acute upper respiratory infection, unspecified Disposition: 01 HOME / SELF CARE / HOMELESS Condition: Fair e-Prescriptions Amoxicillin & Pot Clavulanate (AUGMENTIN TABLET) 875 Mg Tb 875 MG PO BID for 7 Days, #14 TAB Prov: DAMON BURRELL 04/30/24 Promethazine-Dm (Promethazine Dm 6.25-15 mg/5Ml) 1 Kate Kate 5 ML PO TID PRN, #200 ML Prov: DAMON BURRELL 04/30/24 Discharged With: Self Critical Care Note Critical Care Time?: No Stability Stability form required: No Heart Score Heart Score: Heart Score Response (Comments) Value History Slightly Suspicious 0 EKG Normal 0 Age <45 0 Risk Factors No known risk factors 0 Troponin Normal limit 0 Total 0 DAMON BURRELL Apr 30, 2024 20:08
== END 2024-04-30 23:53 | disposition home or self-care (01) ==
LOC: ER 15:10
DX: I47.10 Supraventricular tachycardia, unspecified (principal); J06.9 Acute upper respiratory infection, unspecified; I10 Essential (primary) hypertension; R06.02 Shortness of breath
CPT/HCPCS: 36415; 71045; 80053; 83880; 84484; 85025; 93005

== ENCOUNTER 2024-12-13 12:40 | Emergency (ER) | payer OTHER ==
[~2024-12-13] VITALS: Ht 167.6 cm; Wt 96.8 kg
[~2024-12-13 12:40] MED LIST changes: +AUG875T PO; +PROM1SOL4 PO
[2024-12-13 12:42] VITALS: BP 181/155; PULSE 85; RESP 20; TEMP 98.2; O2SAT 95
--- NOTE | 2024-12-13 13:31 | DVH ---
CHEST RADIOGRAPH Indication: weakness Technique: Single frontal view of the chest was obtained Comparison: XY CHEST XRAY 1 VIEW on DOS: 04/30/24, XY CHEST XRAY 1 VIEW on DOS: 01/29/24 FINDINGS: Lines and Tubes: Linear metallic foreign body over left costophrenic angle. Correlate clinically. Lungs: No focal consolidation. Pleura: No effusion. No pneumothorax. Cardiomediastinal contours: Unremarkable Bones: No acute osseous abnormality. IMPRESSION: 1. No acute cardiopulmonary disease.
[2024-12-13 13:37] LABS: Hematocrit 43.2 % (36.0-46.0); Hemoglobin 14.7 g/dL (12.2-16.2); Mean Corpuscular Hemoglobin 28.0 pg (28.0-32.0); Mean Corpuscular Volume 82.5 fL (80.0-100.0); Nucleated Red Blood Cells % 0.1 %
--- NOTE | 2024-12-13 13:40 | DVH ---
EXAM: CT HEAD WITHOUT CONTRAST HISTORY: htn COMPARISON: CT HEAD WITHOUT CONTRAST on DOS: 01/30/24 TECHNIQUE: Noncontrast axial CT images of the head were performed. Sagittal and coronal reformatted i mages were obtained. This CT exam was performed using 1 or more of the following dose reduction techn iques: Automated exposure control, adjustment of the mA and/or kv according to patient size, or the u se of iterative reconstruction techniques. Radiation Dose: CTDI volume is 58.32 mGy. Dose-length product is 133.06 mGy*cm FINDINGS: No intracranial hemorrhage, mass, midline shift, hydrocephalus, or evidence of acute large vessel inf arct. Raffi cisterna magna re-identified. There is [id number] decreased attenuation in the periv entricular white matter. There are old lacunar infarcts of the right basal ganglia, right anterior t halamus, right frontal periventricular white matter, and bilateral internal capsules. The partially- visualized paranasal sinuses are clear. There is adenoid tonsillar hypertrophy. The bilateral mastoid air cells and middle ear spaces are clear. No cranial fracture or scalp edema. IMPRESSION: Chronic ischemic changes without evidence of acute intracranial process.
[2024-12-13 13:43] LABS: Chloride 101 mmol/L (98-107); Sodium 144 mmol/L (136-145)
[2024-12-13 13:44] LABS: Anion Gap 14 (5-15); Carbon Dioxide 29 mmol/L (20-31); Potassium 2.8 mmol/L (3.5-5.1)
[2024-12-13 13:45] LABS: Calcium 10.0 mg/dL (8.7-10.4)
[2024-12-13 13:49] LABS: BUN/Creatinine Ratio 10.4 (10.0-20.0); Blood Urea Nitrogen 10 mg/dL (9-23); Glucose 82 mg/dL (74-106)
[2024-12-13] MEDS ORDERED: hydrALAZINE HCL 20 MG/ML VL IV ONE (17:15)
--- NOTE | 2024-12-13 17:29 | ED.PDOC ---
History of Present Illness HPI Comments 9-year-old woman presents with high blood pressure and to left knee and left wrist same. She reports the pain is 7/10 sharp in nature. She denies any head strike or loss of consciousness. Chief Complaint: High Blood Pressure Time Seen by MD: 12:51 Primary Care Provider: JOSE CARLOS Reviewed Notes: Nurses Notes, Medications, Allergies Allergies: Coded Allergies: No Known Drug Allergy (Verified Allergy, Unknown, 01/28/24) Home Meds Active Scripts Amoxicillin & Pot Clavulanate (AUGMENTIN TABLET) 875 Mg Tb, 875 MG PO BID for 7 Days, #14 TAB Prov:DAMON BURRELL [employer] B[employer] SEWER 04/30/24 Promethazine-Dm (Promethazine Dm 6.25-15 mg/5Ml) 1 Kate Kate, 5 ML PO TID PRN, #20 0 ML Prov:DAMON BURRELL [employer] B[employer] SEWER 04/30/24 Spironolactone (Spironolactone) 25 Mg Tab, 1 TAB PO DAILY for 30 Days, #30 TAB 5 Refills Prov:LATASHA PONCE [facility] 02/06/24 Lisinopril (Lisinopril) 40 Mg Tab, 1 TAB PO DAILY for 30 Days, #30 TAB 5 Refills Prov:LATASHA PONCE [facility] 02/06/24 Insulin Glargine (Lantus Solostar) 100 Unit/Ml Inj, 18 UNIT SC DAILY for 30 Days, #10 INJ Prov:LATASHA PONCE [facility] 02/01/24 Blood Glucose Monitoring Suppl (D-Care Glucometer Kit/Glu W/Device) 1 Kit Kit, KIT XX DAILY, #1 3 Refills Measure fasting glycemia Prov:LATASHA PONCE [facility] 01/31/24 Metformin Hydrochloride (Metformin Hcl) 500 Mg Tab, 1 TAB PO BID for 30 Days, #60 TAB 3 Refills Prov:LATASHA PONCE [facility] 01/31/24 Spironolactone (Aldactone) 25 Mg Tab, 50 MG PO DAILY for 30 Days, #60 TAB Prov:LATASHA PONCE [facility] 01/31/24 Metoprolol Tartrate (Lopressor) 25 Mg Tb, 25 MG PO BID for 30 Days, #60 TAB Prov:LATASHA PONCE [facility] 01/31/24 Lisinopril (Lisinopril) 20 Mg Tab, 40 MG PO DAILY for 30 Days, #60 TAB Prov:LATASHA PONCE 01/31/24 Insulin Glargine (Lantus) 100 Unit/Ml Inj, 18 UNITS SC HS for 30 Days, #10 INJ Prov:LATASHA PONCE 01/31/24 Empagliflozin (Jardiance) 10 Mg Tab, 10 MG PO DAILY for 30 Days, #30 TAB Prov:LATASHA PONCE 01/31/24 Atorvastatin Calcium (ATORVASTATIN CALCIUM) 20 Mg Tab, 80 MG PO HS for 30 Days, #120 TAB Prov:LATASHA PONCE 01/31/24 Aspirin (Aspirin Low Dose) 81 Mg Tab, 81 MG PO DAILY for 30 Days, #30 TAB Prov:LATASHA PONCE 01/31/24 Information Source: Patient Mode of Arrival: Ambulatory Severity: Moderate Past Medical History PAST MEDICAL HISTORY: HTN Surgical History: Denies all surgeries NEUROSURGERY SPINE PHYSICIAN History: Denies all NEUROSURGERY SPINE PHYSICIAN Hx Family History Family History: Reviewed,noncontributory to illness Social History Smoker: Non-Smoker Alcohol: Denies ETOH Use Drugs: Denies Drug Use Lives In: Home All Other Systems: Reviewed and Negative Physical Exam General Appearance: No Apparent Distress HEENT: Normal ENT Inspection Neck: Normal Inspection Respiratory: No Respiratory Distress Cardiovascular: No Edema Breast Exam: Deferred Gastrointestinal: No Organomegaly Genitalia: Deferred Pelvic: Deferred Rectal: Deferred Extremities: No pedal edema Neurologic: No Motor Deficits Cerebellar Function: NOT DONE Reflexes: NOT DONE Skin: Normal Color Lymphatic: NOT DONE Was a procedure done? Was a procedure done?: No Differential Dx Considerations may include: ACS, CVA, viral syndrome, electrolyte abnormalities, hypertensive urgency X-Ray, Labs, Meds, VS Vital Signs Date Time Temp Pulse Resp B/P (MAP) Pulse Ox O2 Delivery O2 Flow Rate FiO2 12/13/24 12:42 98.2 85 20 181/155 95 98.2 Lab Test 12/13/24 14:21 12/13/24 13:22 Range/Units Troponin I High Sensitivity 15 13 </=34 ng/L White Blood Count 11.5 H 4.4-10.8 10^3/uL Red Blood Count 5.24 H 4.0-5.20 10^6/uL Hemoglobin 14.7 12.2-16.2 g/dL Hematocrit 43.2 36.0-46.0 % Mean Corpuscular Volume 82.5 80.0-100.0 fL Mean Corpuscular Hemoglobin 28.0 28.0-32.0 pg Mean Corpuscular Hemoglobin Concent 34.0 32.0-36.0 g/dL Red Cell Distribution Width 14.5 H 11.8-14.3 % Platelet Count 307 140-450 10^3/uL Mean Platelet Volume 9.1 6.9-10.8 fL Neutrophils (%) (Auto) 58.4 37.0-80.0 % Lymphocytes (%) (Auto) 33.5 10.0-50.0 % Monocytes (%) (Auto) 6.0 0.0-12.0 % Eosinophils (%) (Auto) 1.4 0.0-7.0 % Basophils (%) (Auto) 0.7 0.0-2.0 % Neutrophils # (Auto) 6.7 1.6-8.6 10 ^3/uL Lymphocytes # (Auto) 3.8 0.4-5.4 10 ^3/uL Monocytes # (Auto) 0.7 0-1.3 10 ^3/uL Eosinophils # (Auto) 0.2 0-0.8 10 ^3/uL Basophils # (Auto) 0.1 0-0.2 10 ^3/uL Nucleated Red Blood Cells 0.1 % Sodium Level 144 136-145 mmol/L Potassium Level 2.8 L 3.5-5.1 mmol/L Chloride Level 101 98-107 mmol/L Carbon Dioxide Level 29 20-31 mmol/L Anion Gap 14 5-15 Blood Urea Nitrogen 10 9-23 mg/dL Creatinine 0.96 0.550-1.02 mg/dL Glomerular Filtration Rate Calc 73 >90 mL/min BUN/Creatinine Ratio 10.4 10.0-20.0 Serum Glucose 82 74-106 mg/dL Calcium Level 10.0 8.7-10.4 mg/dL Time of 1ST Reevaluation: 05:21 Reevaluation 1ST: Unchanged Patient Education/Counseling: Diagnosis, Treatment Family Education/Counseling: No Family Present SEPSIS Sepsis Screen Date sepsis recognized/suspect: Dec 13, 2024 Time Sepsis recognized/suspect: 1246 Recent Procedure: No On Antibiotic Therapy: No Respiratory Rate >20: No Heart Rate >90: No Temp<36 C (96.8 F) or >38.3 C: No SBP <90 or MAP <65 mmHG: No New Acute Mental Status Change: No Is the patient on CPAP, BIPAP,: No Physician Orders Chest Portable (12/13/24 12:51) Head Without Contrast (12/13/24 12:51) Vital Signs Date Time Temp Pulse Resp B/P (MAP) Pulse Ox O2 Delivery O2 Flow Rate FiO2 12/13/24 12:42 98.2 85 20 181/155 95 98.2 Laboratory Tests Test 12/13/24 13:22 White Blood Count 11.5 10^3/uL (4.4-10.8) H Departure 1 Departure Time of Disposition: 05:21 (Patient eloped prior to workup to completion) Impression: Primary Impression: Essential hypertension Disposition: 07 LEFT AWOL/ELOPED Condition: Serious Critical Care Note Critical Care Time?: No Stability Stability form required: No Heart Score Heart Score: Heart Score Response (Comments) Value History N/A 0 EKG N/A 0 Age N/A 0 Risk Factors N/A 0 Troponin N/A 0 Total 0 I personally scribed for KEVIN MORALES MD ([email or web address]) on 12/13/24 at 17:29. Electronically submitted by Cesar Franklin ([email or web address]). KEVIN MORALES MD Dec 13, 2024 17:29
== END 2024-12-13 17:29 | disposition left against medical advice (07) ==
LOC: ER 12:40
DX: I10 Essential (primary) hypertension (principal); Z79.899 Other long term (current) drug therapy; Z79.84 Long term (current) use of oral hypoglycemic drugs; Z79.82 Long term (current) use of aspirin
CPT/HCPCS: 36415; 70450; 71045; 80048; 84484; 85025

== ENCOUNTER 2025-01-24 07:42 | Outpatient (CLI) | payer OTHER ==
[~2025-01-24] VITALS: Ht 167.6 cm; Wt 96.6 kg
[2025-01-24] MEDS: REGADENOSON 0.4 MG/5 ML SYRG IV ONE ×2 (08:42→10:08)
--- NOTE | 2025-01-24 16:54 | DVHSR ---
APPROVED REPORT Exam: Nuclear Stress Test BMI: 0 Stress Test Details Stress Test: Pharmacologic stress testing performed using 0.4 mg of regadenoson per 5 mL given IV over 10 seconds. HR Resting HR: 75 bpm Max Heart Rate (APMHR): 171.497618 bpm Max HR Achieved: 94 bpm Target HR (85% APMHR): 145.669807 bpm % of APMHR: 54.97 Recovery HR: 80 bpm BP Resting BP: 135/93 mmHg Recovery BP: 133/82 mmHg ECG Resting ECG: Sinus Rhythm Clinical Reason for Termination: Completed protocol Nurse Comments Recieved pt. from [employer]. A/Ox4 on RA. Connected to groundwater monitoring technician, VS stable. PIV flushes well. Reviewed POC. Pt. verbalized understanding of procedure including risks and side effects, agrees for stress testing. Lexiscan stress test performed per protocol. [employer] tech administered Cardiolite. Pt. tolerated well. Pt. stable, no change on exam. VS returned to baseline. Transferred to [facility] via wheelchair w/ tech. Stress ECG Conclusion lvef 39% inferior wall ischemia dilated LV abnormal study 1/[address] depressions inferiorly NM EXAM: Myocardial Perfusion REST/STRESS Imaging Protocol: Rest Tc-99m/Stress Tc-99m 1 day Resting Data Rest SPECT myocardial perfusion imaging was performed in supine position 60 minutes following the intravenous injection of 9.8 mCi of Tc-99m Sestamibi. Time of rest injection: 08:41 Date: 01/24/2025 Time of rest imagin:41 Date: 01/24/2025 Administration Route: IV Administration Site: Right Hand Pharmacologic Stress Pharmacologic stress test was performed by injecting Regadenoson 0.4 mg IV push followed by the intravenous injection of 29.4 mCi of Tc-99m Sestamibi. Time of stress injection: 10:10 Date: 01/24/2025 Time of stress imagin:10 Date: 01/24/2025 Administration Route: IV Administration Site: Left AC Gated Stress SPECT was performed 60 minutes after stress injection. The images were gated to evaluate regional wall motion and calculate left ventricular ejection fraction. Stress only was performed in the Supine position. Nuclear Conclusion Nuclear Findings: positive for ischemia lvef 39% inferior wall ischemia dilated LV abnormal study 1/[address] depressions inferiorly
== END 2025-01-24 17:00 | disposition home or self-care (01) ==
LOC: XYW 07:42
PROVIDERS: ATTEND Internal Medicine
DX: Z01.810 Encounter for preprocedural cardiovascular examination (principal); I25.9 Chronic ischemic heart disease, unspecified; M48.061 Spinal stenosis, lumbar region without neurogenic claudication
CPT/HCPCS: 78452; 93017; A9500; J2785

== ENCOUNTER 2025-02-27 07:15 | Day surgery (SDC) | payer OTHER ==
[2025-02-25 10:53] LABS: Hematocrit 42.0 % (36.0-46.0); Hemoglobin 14.2 g/dL (12.2-16.2); Mean Corpuscular Hemoglobin 28.0 pg (28.0-32.0); Mean Corpuscular Volume 82.5 fL (80.0-100.0); Nucleated Red Blood Cells % 0.1 %
[2025-02-25 11:03] LABS: Alanine Aminotransferase 36 U/L (7-40); Albumin 4.7 g/dL (3.2-4.8); Alkaline Phosphatase 109 U/L (46-116); Anion Gap 8 (5-15); BUN/Creatinine Ratio 9.9 (10.0-20.0); Blood Urea Nitrogen 10 mg/dL (9-23); Calcium 10.0 mg/dL (8.7-10.4); Chloride 101 mmol/L (98-107); Glucose 105 mg/dL (74-106); Sodium 142 mmol/L (136-145)
[2025-02-25 11:04] LABS: Bilirubin, Total 1.1 mg/dL (0.2-1.0); Carbon Dioxide 33 mmol/L (20-31); Potassium 3.1 mmol/L (3.5-5.1); Total Protein 8.6 g/dL (5.7-8.2)
[2025-02-25 11:30] LABS: INR 1.03 (0.9-1.15); Partial Thromboplastin Time 27.7 SEC (24.5-34.5); Prothrombin Time 10.9 sec (9.3-11.8)
[2025-02-27] VITALS (7 sets, daily range): BP systolic 146–168; BP diastolic 75–89; PULSE 58–69; RESP 14–16; O2SAT 94–96
[~2025-02-27] VITALS: Ht 170.2 cm; Wt 97.1 kg
[~2025-02-27 07:15] MED LIST changes: +AML5T PO; -ASPI-325 PO; +ASPI81CA PO; -AUG875T PO; +CARV6.2551 PO; +CLON0.1T PO; +EZET10TA22 PO; -INSLANTI SC; -INSUINJ37 SC; +ISOS1TAB29 PO; -LISI20TA56 PO; -LISI40TA16 PO; -MET25T PO; +METO-289 PO; -PROM1SOL4 PO; +SACU1TAB7 PO; +SEMA2INJ3 SC; -SPIR25TA PO; -SPIR25TA8 PO; +SPIR50TA5 PO
[2025-02-27] MEDS: IODIXANOL 320MG/ML 100ML BTL IV ONE (07:35)
[2025-02-27] MEDS: VERAPAMIL 2.5MG/ML INJ 2ML VIAL IV ONE (07:47)
[2025-02-27] MEDS: ANGIOMAX 250 MG VIAL IV ONE (07:47)
[2025-02-27] MEDS: SODIUM CHL 0.9% 50 ML ONE (07:48)
[2025-02-27] MEDS: MIDAZOLAM HCL 2MG/2ML 2ml VIAL (1mg/ml) ONE (07:48)
[2025-02-27] MEDS: LIDOCAINE 2%HCL (LOCAL ANESTH.) INJ 20ML MDV ONE (07:48)
[2025-02-27] MEDS: HEPARIN SODIUM (PORCINE) 5000 UNITS/ML 1ML VIAL ONE (07:49)
[2025-02-27] MEDS: fentaNYL CITRATE 100 MCG/2 ML VL ONE (07:49)
[2025-02-27] MEDS: hydrALAZINE HCL 20 MG/ML VL ONE (08:05)
[2025-02-27] MEDS: CLOPIDOGREL BISULFATE 75 MG TAB ONE (09:24)
--- NOTE | 2025-02-27 10:13 | DVHOP2 ---
Operative Report - 2 Report Details Date: 02/27/25 Preop Diagnosis: Coronary artery disease Postop Diagnosis: PTCA and stenting of LAD Surgeon: Regulo Vogel MD Anesthesiologist: Conscious sedation administered. I personally ordered and supervised the a dministration and the condition of the patient throughout the procedure for approximately 30 minutes. Anesthesia: Mac, Local Consent: The patient was informed of the risks and benefits of the procedure. These include but are not limited to complications of anesthesia, postoperative infection, incomplete relief of symptoms, recurrence of symptoms, damage to blood vessels, nerves and tendons, deep venous thrombosis, pulmonary embolism and possible need for repeat surgery in the future. Complications: No complications Findings: Lad stenosis Indications for Surgery: Chest pain. Abnormal stress test. Preoperative clearance. Name of Procedure Performed Left heart catheterization. Bilateral cine coronary angiography. Left ventriculography. PTCA and stenting of the LAD. Fractional flow reserve evaluation of the LAD. Intravascular ultrasound evaluation of LAD. Procedure Details Procedure Details: Prior local anesthesia with 2% lidocaine to the right wrist and full informed consent obtained the patient was prepped and draped in usual fashion followed by placement of a slender sheath into the radial artery. A multipurpose catheter was used for performance of ventriculography and cannulation of both right and left coronary ostia without complications. Intravascular ultrasound evaluation was performed prior to angioplasty and fractional flow reserve evaluation with a cath works program was used to delineate the severity of stenosis in the left anterior descending coronary artery. No complications Hemodynamics: Aortic blood pressure was one 50/90. End-diastolic pressure was eight. There was no gradient across the aortic valve on pullback. Coronary anatomy: The RCA is a large dominant vessel, it is normal in its proximal mid and distal segments. The PDA and posterolateral branches are normal. The left main is large and normal. Left anterior descending coronary artery is a large vessel it has moderate calcification throughout. The proximal LAD just distal to the diagonal branch has a 75-80% stenosis. Fractional flow reserve evaluation revealed an FFR of 0.81 consistent with significant stenosis. The diagonals and septals are free of significant disease. The circumflex is a large vessel with two obtuse marginals free of significant disease. Ventriculography in the LOPEZ projection shows an EF of 60%. Angioplasty was performed. A 3.0 EBU guiding catheter was placed. A Specter wire was placed across the area of stenosis after performing fractional flow reserve evaluation. Intravascular ultrasound was also performed delineating the significance of the stenosis in the size of the vessel. We performed a dilatation with a shockwave catheter. A 3-0 by 12 shockwave balloon was placed. A proximally six treatments transpired at a maximum of six atmospheres. We proceeded to stent with a 3-0 by 15 mm stent at a proximally 12 atmospheres distally and retracting the balloon to a proximally 15 atmospheres proximally. Patient tolerated the procedure well there were no complications. Impression: SuccessfulPTCA and stenting of the LAD subsequent to fractional flow reserve evaluation and intravascular ultrasound guidance. Normal left ventricular end-diastolic pressure. Accelerated hypertension. Normal ejection fraction. Single-vessel coronary artery disease as delineated above. Recommendations: Continue medical therapy and risk factor modification. Dual antiplatelet therapy to continue. Condition Good Disposition Home Date of Service: Feb 27, 2025 Billing Provider: REGULO VOGEL Sr., MD Cardiology Common Codes: 91783-PZWIEAB INP/OBS CARE (High) Cardiology Procedure Codes: 32889 -PTCA W/STENT PLACEMENT, 61054-ZSXY HEART CATH W/INTRA INJ REGULO VOGEL Sr., MD Feb 27, 2025 10:13
== END 2025-02-27 11:25 | disposition home or self-care (01) ==
LOC: CATH 07:15
PROVIDERS: ATTEND Internal Medicine
DX: I25.10 Atherosclerotic heart disease of native coronary artery without angina pectoris (principal); R94.39 Abnormal result of other cardiovascular function study; I50.9 Heart failure, unspecified; Z79.82 Long term (current) use of aspirin; Z79.84 Long term (current) use of oral hypoglycemic drugs; Z79.899 Other long term (current) drug therapy; Z87.01 Personal history of pneumonia (recurrent); Z90.710 Acquired absence of both cervix and uterus; Z85.42 Personal history of malignant neoplasm of other parts of uterus; Z82.49 Family history of ischemic heart disease and other diseases of the circulatory system; Z83.3 Family history of diabetes mellitus; Z82.0 Family history of epilepsy and other diseases of the nervous system
CPT/HCPCS: 36415; 80053; 81025; 85025; 85610; 85730; 92972; 92978; 93458; 93571; C1753; C1761; C1769; C1874; C1887; C1894; C9600; J0360; J0583; J1644; J2250; J3010; Q9967; 99152; 99153

== ENCOUNTER 2025-03-05 12:28 | Inpatient (IN) | payer OTHER ==
[~2025-03-05] VITALS: Ht 167.6 cm; Wt 99.0 kg
[~2025-03-05 12:28] MED LIST changes: +CLOP75TA70 PO
--- NOTE | 2025-03-05 13:01 | ED.PDOC ---
HPI Comments 49 year old female with PMHx HTN, DM, cardiac stent presents to the ED with a chief complaint of chest pain onset today. Patient states she woke up this morning experiencing LT sided chest pain, radiating to RT arm, describes arm pain as a "heavy" sensation. She had cardiac stents placed by Dr. Vogel on 02/27/25, currently on blood thinners. Upon ED arrival, patient was hypertensive with BP 216/123. Patient states chest pain is causing shortness of breath. Denies fever, chills, nausea, vomiting, diarrhea, headache, dizziness, numbness/tingling. No other symptoms or modifying factors present at this time. Time Seen by MD: 12:45 Primary Care Provider: JOSE CARLOS Reviewed Notes: Medications, Allergies Allergies: Coded Allergies: No Known Drug Allergy (Verified Allergy, Unknown, 02/25/25) Home Meds Active Scripts Blood Glucose Monitoring Suppl (D-Care Glucometer Kit/Glu W/Device) 1 Kit Kit, KIT XX DAILY, #1 3 Refills Measure fasting glycemia Prov:LATASHA PONCE RESIDENT 01/31/24 Atorvastatin Calcium (ATORVASTATIN CALCIUM) 20 Mg Tab, 80 MG PO HS for 30 Days, #120 TAB Prov:LATASHA PONCE RESIDENT 01/31/24 Reported Medications Spironolactone (Spironolactone) 50 Mg Tab, 1 TAB PO DAILY for HTN, #30 TAB 5 Refills 02/25/25 Semaglutide (Ozempic) 2 Mg/3 Ml Inj, 0.5 MG SC QWEEKLY for DIABETES, INJ 02/25/25 Metoprolol Succinate (Metoprolol Succinate Er) 50 Mg Tab, 50 MG PO DAILY for HTN for 30 Days, MG 02/25/25 Metformin Hydrochloride (Metformin Hcl) 500 Mg Tab, 1000 MG PO DAILY for DIABETES for 30 Days, MG 02/25/25 Empagliflozin (Jardiance) 10 Mg Tab, 10 MG PO DAILY for DIABETES, TAB 02/25/25 Isosorbide Mononitrate (Isosorbide Mononitrate Er) 60 Mg Tab, 60 MG PO DAILY for CHEST PAIN, MG 02/25/25 Ezetimibe (Zetia) 10 Mg Tab, 1 TAB PO DAILY for HIGH CHOLESTEROL, #30 TAB 5 Refills 02/25/25 Sacubitril-Valsartan (Entresto 49-51 mg) 1 Tab Tab, 1 TAB PO BID for HTN, TAB 02/25/25 Clonidine Hydrochloride (Clonidine Hcl) 0.1 Mg Tab, 0.1 MG PO Q2HPRN PRN for SYSTOLIC BP>160, MG 02/25/25 Carvedilol (Carvedilol) 6.25 Mg Tab, 6.25 MG PO BID for HTN, MG 02/25/25 Aspirin ([place]) 81 Mg Cap, 81 MG PO DAILY for CHEST PAIN, CAP 02/25/25 Amlodipine Besylate (NORVASC TABLET) 5 Mg Tb, 2 TAB PO DAILY for HTN, #30 TAB 5 Refills 02/25/25 Information Source: Patient Mode of Arrival: Ambulatory Severity: Moderate Timing: Hours Duration: Since onset Prehospital treatment: None Location: Chest (L) Radiation: Arm (R) Quality: Sharp Onset: At Rest Cardiac Risk Factors: HTN, Diabetes PE Risk Factors: None History of: Similar pain in past Modifying Factors: Nothing Past Medical History PAST MEDICAL HISTORY: DM, HTN Surgical History: PTCA DE ALCHOLIZER History: Denies all DE ALCHOLIZER Hx Family History Family History: Reviewed,noncontributory to illness Social History Smoker: Non-Smoker Alcohol: Denies ETOH Use Drugs: Denies Drug Use Lives In: Home Constitutional: denies: chills, diaphoresis, fatigue, fever, malaise, sweats, weakness, others EENTM: denies: blurred vision, double vision, ear bleeding, ear discharge, ear drainage, ear pain, ear ringing, eye pain, eye redness, hearing loss, mouth pain, mouth swelling, nasal discharge, nose bleeding, nose congestion, nose pain, photophobia, tearing, throat pain, throat swelling, voice changes, others Respiratory: denies: cough, hemoptysis, orthopnea, SOB at rest, shortness of breath, SOB with excertion, stridor, wheezing, others Cardiovascular: reports: chest pain, others (hypertension); denies: dizzy spells, diaphoresis, Dyspnea on exertion, edema, irregular heart beat, left arm pain, lightheadedness, palpitations, PND, syncope Gastrointestinal: denies: abdomen distended, abdominal pain, blood streaked bowels, constipated, diarrhea, dysphagia, difficulty swallowing, hematemesis, melena, nausea, poor appetite, poor fluid intake, rectal bleeding, rectal pain, vomiting, others Genitourinary: denies: abnormal vagina bleeding, burning, dyspareunia, dysuria, flank pain, frequency, hematuria, incontinence, pain, , vagina discharge, urgency, others Neurological: denies: dizziness, fainting, headache, left sided numbness, left sided weakness, numbness, paresthesia, pre-existing deficit, right sided numbness, right sided weakness, seizure, speech problems, tingling, tremors, weakness, others Musculoskeletal: reports: others (RT arm pain); denies: back pain, gout, joint pain, joint swelling, muscle pain, muscle stiffness, neck pain Integumetry: denies: bruises, change in color, change in hair/nails, dryness, laceration, lesions, lumps, rash, wounds, others Allergic/Immunocompromised: denies: Difficulty Healing, Frequent Infections, Hives, Itching, others Hematologic/Lymphatic: denies: anemia, blood clots, easy bleeding, easy bruising, swollen glands, others Endocrine: denies: excessive hunger, excessive sweating, excessive thirst, excessive urination, flushing, intolerance to cold, intolerance to heat, unexplained weight gain, unexplained weight loss, others Psychiatric: denies: anxiety, bipolar disorder, depression, hopeless, panic disorder, schizophrenia, sleepless, suicidal, others All Other Systems: Reviewed and Negative Physical Exam General Appearance: Moderate Distress, Normal HEENT: Normal ENT Inspection, Pharynx Normal, TMs Normal Neck: Full Range of Motion, Non-Tender, Normal, Normal Inspection Respiratory: Chest Non-Tender, Lungs Clear, No Accessory Muscle Use, No Respiratory Distress, Normal Breath Sounds Cardiovascular: No Edema, No JVD, No Murmur, No Gallop, Normal Peripheral Pulses, Regular Rate/Rhythm Breast Exam: Deferred Gastrointestinal: No Organomegaly, Non Tender, No Pulsatile Mass, Normal Bowel Sounds, Soft Genitalia: Deferred Pelvic: Deferred Rectal: Deferred Extremities: No calf tenderness, Normal capillary refill, Normal inspection, Normal range of motion, Non-tender, No pedal edema Musculoskeletal : Apperance: Normal Neurologic: Alert, unattended ground sensor specialist II-XII nml as Tested, No Motor Deficits, Normal Affect, Normal Mood, No Sensory Deficits Cerebellar Function: Normal Reflexes: Normal Skin: Dry, Normal Color, Warm Peripheral Pulses: 3+ Radial (R), 3+ Radial (L) Lymphatic: No Adenopathy Was a procedure done? Was a procedure done?: No CP Differential Dx Differential Diagnosis: A-fib, A-Flutter, Angina, Anxiety / Panic Attack, Atria l Dysrhythmia, Electrolyte Disorder X-Ray, Labs, Meds, VS Vital Signs Date Time Temp Pulse Resp B/P (MAP) Pulse Ox O2 Delivery O2 Flow Rate FiO2 03/05/25 13:30 Room Air* 0 21 03/05/25 13:28 164/105 03/05/25 13:24 91 03/05/25 12:56 98.1 90 16 216/123 98 98.1 03/05/25 12:34 94 Lab Test 03/05/25 13:38 03/05/25 12:38 Range/Units Troponin I High Sensitivity Pending 13 </=34 ng/L Sodium Level Pending Potassium Level Pending Chloride Level Pending Carbon Dioxide Level Pending Anion Gap Pending Blood Urea Nitrogen Pending Creatinine Pending Glomerular Filtration Rate Calc Pending BUN/Creatinine Ratio Pending Serum Glucose Pending Calcium Level Pending Total Bilirubin Pending Aspartate Amino Transferase (AST) Pending Alanine Aminotransferase (ALT) Pending Alkaline Phosphatase Pending Total Protein Pending Albumin Pending Current Medications Medications (Trade) Dose Ordered Sig/Juan C Route Start Time Stop Time Status Last Admin Amlodipine Besylate (Norvasc Tablet) 10 mg ONCE ONCE PO 03/05/25 13:15 03/05/25 13:16 DC 03/05/25 13:28 Patient alert. Came in because of chest pain. Blood pressure elevated. Answering questions. Currently on blood thinner. Recently had stent placement. EKG reviewed does not show any acute changes. Cardiac marker within normal limits. Cardiology consultation. Explained to the patient. Continue monitoring. Time of 1ST Reevaluation: 13:15 Reevaluation 1ST: Unchanged Patient Education/Counseling: Diagnosis, Treatment, Prognosis Family Education/Counseling: No Family Present SEPSIS Sepsis Screen Physician Orders Comprehensive Metabolic Panel (03/05/25 12:35) Basic Metabolic Panel (03/05/25 12:35) Urinalysis (03/05/25 12:35) Troponin-I Hs (03/05/25 13:35) Troponin-I Hs (03/05/25 15:35) Electrocardigram (03/05/25 13:35) Electrocardigram (03/05/25 15:35) Chest Portable (03/05/25 13:13) Vital Signs Date Time Temp Pulse Resp B/P (MAP) Pulse Ox O2 Delivery O2 Flow Rate FiO2 03/05/25 13:30 Room Air* 0 21 03/05/25 13:28 164/105 03/05/25 13:24 91 03/05/25 12:56 98.1 90 16 216/123 98 98.1 03/05/25 12:34 94 Medications Medications Dose Ordered Sig/Juan C Route Start Time Stop Time Status Last Admin Dose Admin Amlodipine Besylate 10 mg ONCE ONCE PO 03/05/25 13:15 03/05/25 13:16 DC 03/05/25 13:28 Departure 1 Departure Time of Disposition: 13:44 Impression: Primary Impression: Chest pain of unknown etiology Additional Impression: Hypertensive emergency Disposition: 09 ADMITTED INPATIENT Admit to: Med Surg Condition: Guarded Critical Care Note Critical Care Time?: Yes (90 min-critical care time only) Stability Stability form required: No Heart Score Heart Score: Heart Score Response (Comments) Value History Slightly Suspicious 0 EKG Normal 0 Age 45-64 1 Risk Factors >3 or Hx ASHD 2 Troponin Normal limit 0 Total 3 I personally scribed for KEL HUYNH MD ([email or web address]) on 03/05/25 at 13:01. Electronically submitted by Mali Aviles ([email or web address]). KEL HUYNH MD Mar 05, 2025 13:01
--- NOTE | 2025-03-05 13:26 | ECG ---
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
[2025-03-05 13:54] LABS: Alanine Aminotransferase 36 U/L (7-40); Albumin 4.6 g/dL (3.2-4.8); Alkaline Phosphatase 104 U/L (46-116); Anion Gap 9 (5-15); BUN/Creatinine Ratio 9.6 (10.0-20.0); Calcium 9.7 mg/dL (8.7-10.4); Carbon Dioxide 30 mmol/L (20-31); Chloride 103 mmol/L (98-107); Sodium 142 mmol/L (136-145)
[2025-03-05 13:55] LABS: Bilirubin, Total 0.9 mg/dL (0.2-1.0); Blood Urea Nitrogen 8 mg/dL (9-23); Glucose 136 mg/dL (74-106); Potassium 2.9 mmol/L (3.5-5.1); Total Protein 8.4 g/dL (5.7-8.2)
--- NOTE | 2025-03-05 14:01 | DVH ---
CHEST RADIOGRAPH INDICATION: CHEST PAIN TECHNIQUE: Single frontal view of the chest was obtained COMPARISON: XY CHEST PORTABLE on DOS: 12/13/24, XY CHEST XRAY 1 VIEW on DOS: 04/30/24, XY CHEST XRAY 1 VIEW on DOS: 01/29/24 FINDINGS: Lines and Tubes: None Lungs: Right lower lobe opacity likely pneumonia versus atelectasis versus aspiration. Pleura: No effusion. No pneumothorax. Cardiomediastinal contours: Unremarkable Bones: No acute osseous abnormality. IMPRESSION: 1. Right lower lobe opacity likely pneumonia versus atelectasis versus aspiration.
[2025-03-05] MEDS: LABETALOL HCL 20 MG/4 ML VL IV ONE (14:28)
[2025-03-05] MEDS: HYDROcodone-ACET 5/325MG TAB PO ONE (14:44)
--- NOTE | 2025-03-05 15:23 | ECG ---
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
--- NOTE | 2025-03-05 16:09 | DVHINCON2 ---
Date Seen: Mar 05, 2025 Referring Physician MD Duane Reason for Consultation Chest pain History of Present Illness This is a 49-year-old female patient who presents to emergency room with chest pain. The patient reports that the chest pain began at approximately 8:30 a.m. today while she was getting out of bed. She describes the pain as unprovoked, constant, tight in nature, substernal with radiation down her right arm. Associated symptoms include headache. She was brought to the emergency room by her daughter. Upon emergency room arrival, the patient's blood pressure was noted to reach as high as 216/123. Initial twelve lead electrocardiogram reveals normal sinus rhythm with incomplete bundle branch block and baseline wander in multiple leads (this is a very poor quality EKG). A repeat 12 lead EKG reveals normal sinus rhythm with nonspecific T-wave inversion to inferolateral leads. Initial troponin level of 13ng/L with flat trend thereafter. Significant past medical history includes coronary artery disease status post PTCA x1 JENNIFER (on Plavix and aspirin), congestive heart failure, hypertension, dyslipidemia, intraoperative cardiac arrest on 05/2022, CVA wi thout residual deficits, type 2 diabetes mellitus, chronic back pain, and obesity. Of note, the patient recently underwent a coronary angiogram with left heart catheterization on 02/27/2025 in which there was successful PTCA and stenting of the LAD. The patient reports compliance with all of her medications including dual antiplatelet therapy. She follows up with her primary car diologist in the outpatient setting. Past Medical History Past medical history reviewed. No other significant than mentioned above. Past Surgical History Hysterectomy Carpal tunnel repair Appendectomy Family History: Diabetes during G8 BROTHER Hypertension G8 MOTHER G8 FATHER Seizure disorder G8 MOTHER Family History Family history reviewed. Social History Denies the use of tobacco, alcohol or illicit drugs. Allergies: Coded Allergies: No Known Drug Allergy (Verified Allergy, Unknown, 02/25/25) Home Meds Active Scripts Blood Glucose Monitoring Suppl (D-Care Glucometer Kit/Glu W/Device) 1 Kit Kit, KIT XX DAILY, #1 3 Refills Measure fasting glycemia Prov:LATASHA PONCE RESIDENT 01/31/24 Atorvastatin Calcium (ATORVASTATIN CALCIUM) 20 Mg Tab, 80 MG PO HS for 30 Days, #120 TAB Prov:LATASHA PONCE RESIDENT 01/31/24 Reported Medications Spironolactone (Spironolactone) 50 Mg Tab, 1 TAB PO DAILY for HTN, #30 TAB 5 Refills 02/25/25 Semaglutide (Ozempic) 2 Mg/3 Ml Inj, 0.5 MG SC QWEEKLY for DIABETES, INJ 02/25/25 Metoprolol Succinate (Metoprolol Succinate Er) 50 Mg Tab, 50 MG PO DAILY for HTN for 30 Days, MG 02/25/25 Metformin Hydrochloride (Metformin Hcl) 500 Mg Tab, 1000 MG PO DAILY for DIABETES for 30 Days, MG 02/25/25 Empagliflozin (Jardiance) 10 Mg Tab, 10 MG PO DAILY for DIABETES, TAB 02/25/25 Isosorbide Mononitrate (Isosorbide Mononitrate Er) 60 Mg Tab, 60 MG PO DAILY for CHEST PAIN, MG 02/25/25 Ezetimibe (Zetia) 10 Mg Tab, 1 TAB PO DAILY for HIGH CHOLESTEROL, #30 TAB 5 R efills 02/25/25 Sacubitril-Valsartan (Entresto 49-51 mg) 1 Tab Tab, 1 TAB PO BID for HTN, TAB 02/25/25 Clonidine Hydrochloride (Clonidine Hcl) 0.1 Mg Tab, 0.1 MG PO Q2HPRN PRN for SYSTOLIC BP>160, MG 02/25/25 Carvedilol (Carvedilol) 6.25 Mg Tab, 6.25 MG PO BID for HTN, MG 02/25/25 Aspirin ([place]) 81 Mg Cap, 81 MG PO DAILY for CHEST PAIN, CAP 02/25/25 Amlodipine Besylate (NORVASC TABLET) 5 Mg Tb, 2 TAB PO DAILY for HTN, #30 TAB 5 Refills 02/25/25 Home Meds Home medications reviewed. Review of Systems Constitutional: No symptom reported Ears, Nose, & Throat: No symptom reported Eyes: No symptom reported Neurological: No symptoms reported Pulmonary/Respiratory: No symptoms reported Cardiovascular: Chest pain Gastrointestinal: No symptom reported Genitourinary: No symptom reported Musculoskeletal: No symptom reported Skin: No symptom reported Psychiatric: No symptom reported Endocrine: No symptom reported Hematologic/Lymphatic: No symptom reported Vital Signs Vital Signs Date Time Temp Pulse Resp B/P (MAP) Pulse Ox O2 Delivery O2 Flow Rate FiO2 03/05/25 15:22 73 03/05/25 14:28 135/77 03/05/25 13:30 Room Air* 0 21 03/05/25 12:56 98.1 16 98 98.1 Physical Exam General Appearance: Cooperative. Obese Pulmonary/Respiratory: Clear, bilateral breaths sounds. Cardiovascular/Chest: Regular rate and rhythm. Peripheral Pulses: 2+ Radial (R). 2+ Radial (L). 2+ Pedal (R). 2+ Pedal (L) Abdominal Exam: Normal bowel sounds. Ankle Exam: Negative ankle edema Lower extremities: Negative lower extremity edema Neuro/Mental Status: A/OX4, coherent. Thoughts/Psych: Normal thought pattern. Appropriate mood and affect. Good judgment and insight. Appearance: No acute distress. Skin Exam: Normal inspection. Normal color. Warm and dry. Labs/Diagnostic Data Labs Test 03/05/25 15:31 03/05/25 12:38 Range/Units Sodium Level 142 136-145 mmol/L Potassium Level 2.9 L 3.5-5.1 mmol/L Chloride Level 103 98-107 mmol/L Carbon Dioxide Level 30 20-31 mmol/L Anion Gap 9 5-15 Blood Urea Nitrogen 8 L 9-23 mg/dL Creatinine 0.83 0.550-1.02 mg/dL Glomerular Filtration Rate Calc 86 >90 mL/min BUN/Creatinine Ratio 9.6 L 10.0-20.0 Serum Glucose 136 H 74-106 mg/dL Calcium Level 9.7 8.7-10.4 mg/dL Total Bilirubin 0.9 0.2-1.0 mg/dL Aspartate Amino Transferase (AST) 23 13-40 U/L Alanine Aminotransferase (ALT) 36 7-40 U/L Alkaline Phosphatase 104 46-116 U/L Total Protein 8.4 H 5.7-8.2 g/dL Albumin 4.6 3.2-4.8 g/dL Assessment Chest pain likely in the setting of hypertensive urgency Coronary artery disease status post recent PTCA x1 JENNIFER (on Plavix and aspirin) Dyslipidemia History of HFrEF, NYHA class II (per echo on 09/17/24 EF 40%) History of CVA without residual deficits Type 2 diabetes mellitus Chronic back pain Morbid obesity Plan/Recommendation We will continue with the following plan/recommendations (Dr. Vogel): Case reviewed and discussed with including pertinent labs and 12 lead EKGs. We will proceed with obtaining a transthoracic echocardiogram to evaluate cardiac function. Previous transthoracic echocardiogram from 09/17/2024 reveals an EF of approximately 40%.Resume guideline directed medical therapy for CHF as tolerated. Troponin levels have been negative. Chest pain likely in the setting of elevated blood pressure. Initiate aggressive BP control as tolerated. Restart patient's dual antiplatelet therapy and lipid-lowering agent given recent stent placement. Continue with close cardiac surveillance and notify cardiology team immediately for any ECG changes. Further recommendations per clinical course and progression. Thank you for allowing us to care for this patient. Please call with any questions or concerns. Critical care time spent: 44 minutes This medical document was created using an electronic medical record system with voice recognition software and computerized dictation system. Although this doc ument has been carefully reviewed, there might still be some phonetic and typographical errors. Occasional wrong-word or ``sound-alike substitutions may have occurred due to the inherent limitations of voice recognition software. These areas are purely typographical due to imperfections of the software programs and do not reflect any compromise in the patient's medical care. Oumou lozoya read the chart carefully and recognize, using context, where these substitutions have occurred. Plan discussed with: Patient NYHA Physical activity limitations: Class2(Slight)fatigue,sob (palpitatns, angina w activityv) Date of Service: Mar 05, 2025 Billing Provider: LEANNE MCINTYRE Cardiology Common Codes: 61496-[id number] INP/OBS CARE (High) Cardiology Consultation Codes: [id number] CONSULT <45MIN LEANNE MCINTYRE Mar 05, 2025 16:09
[2025-03-05] MEDS: FUROSEMIDE 20 MG/2 ML VIAL IV ONE (17:15)
[2025-03-05] MEDS ORDERED: DEXTROSE (50%) 50ML SYRG IV PRN (17:15)
[2025-03-05] MEDS ORDERED: ACETAMINOPHEN 500 MG TAB or CAP PO PRN (17:15)
--- NOTE | 2025-03-05 17:22 | DVHHPRES ---
History of Present Illness Resident Creating Document: MILADIS HERNANDEZ RESIDENT History of Present Illness 49-year-old female presented to ER with a chief complaint of chest pain starting earlier this morning. Patient reports chest pain, midline sternal, diet in nature, which radiated to the right arm, associated with shortness of breath at around 0800 in the morning. She was recently seen in his facility and underwent PTCA to LAD by Dr. Vogel on 02/2024, reports compliance to aspirin and Plavix daily. She denied nausea, vomiting, constipation, diarrhea, fever, chills, palpitations. On arrival to the ED, blood pressure was greater than 200 mmHg. Past medical /surgical history: CAD status post PTCA 1 JENNIFER aspirin and Plavix, heart failure with reduced ejection fraction, hypertension, dyslipidemia, intraoperative cardiac arrest during abdominal surgery 2022, CVA without residual deficits, chronic back pain, type 2 diabetes mellitus. Home medication: Aspirin, Plavix PCP: Dr. 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 Vogel Patient seen and examined in ER. Regular heart sounds, no pitting edema. Review of Systems Respiratory: Shortness of breath Cardiovascular: Chest Pain Allergies: Coded Allergies: No Known Drug Allergy (Verified Allergy, Unknown, 02/25/25) Medications Current Medications Medications Dose Ordered Sig/Juan C Route Start Time Stop Time Status Last Admin Dose Admin Aspirin 81 mg DAILY PO 03/06/25 10:00 Atorvastatin Calcium 80 mg HS PO 03/05/25 22:00 Clopidogrel Bisulfate 75 mg DAILY PO 03/06/25 10:00 Carvedilol 6.25 mg Q12HR PO 03/05/25 22:00 Exam Vital Signs Vital Signs Date Time Temp Pulse Resp B/P (MAP) Pulse Ox O2 Delivery O2 Flow Rate FiO2 03/05/25 15:58 77 14 119/80 (93) 98 03/05/25 13:30 Room Air* 0 21 03/05/25 12:56 98.1 98.1 General Appearance: Alert, Oriented X3, Cooperative, No acute distress HEENT: Mucous membr. moist/pink Respiratory: Clear to auscultation, Normal air movement Cardiovascular: Regular rate, Normal S1, Normal S2 Abdominal: Normal bowel sounds, No tenderness Extremities: No edema, Normal pulses Skin: No rashes Neuro: Normal gait, Normal speech Psych/Mental Status: Mental status NL, Mood NL Labs/Xrays Labs Test 03/05/25 15:31 03/05/25 12:38 Range/Units Troponin I High Sensitivity 14 </=34 ng/L Sodium Level 142 136-145 mmol/L Potassium Level 2.9 L 3.5-5.1 mmol/L Chloride Level 103 98-107 mmol/L Carbon Dioxide Level 30 20-31 mmol/L Anion Gap 9 5-15 Blood Urea Nitrogen 8 L 9-23 mg/dL Creatinine 0.83 0.550-1.02 mg/dL Glomerular Filtration Rate Calc 86 >90 mL/min BUN/Creatinine Ratio 9.6 L 10.0-20.0 Serum Glucose 136 H 74-106 mg/dL Calcium Level 9.7 8.7-10.4 mg/dL Total Bilirubin 0.9 0.2-1.0 mg/dL Aspartate Amino Transferase (AST) 23 13-40 U/L Alanine Aminotransferase (ALT) 36 7-40 U/L Alkaline Phosphatase 104 46-116 U/L Total Protein 8.4 H 5.7-8.2 g/dL Albumin 4.6 3.2-4.8 g/dL SEPSIS Sepsis Screen Date sepsis recognized/suspect: Mar 05, 2025 Time Sepsis recognized/suspect: 1331 Recent Procedure: No On Antibiotic Therapy: No Respiratory Rate >20: No Heart Rate >90: No Temp<36 C (96.8 F) or >38.3 C: No SBP <90 or MAP <65 mmHG: No New Acute Mental Status Change: No Is the patient on CPAP, BIPAP,: No Physician Orders Urinalysis (03/05/25 12:35) Electrocardigram (03/05/25 15:35) Chest Portable (03/05/25 13:13) * Cardiology Consult (03/05/25 13:45) Aspirin Enteric Coated Tablet (Ecotrin E (03/06/25 10:00) Atorvastatin (Lipitor) (03/05/25 22:00) Clopidogrel Bisulfate (Plavix) (03/06/25 10:00) Carvedilol Tablet (Coreg Tablet) (03/05/25 22:00) Admit (03/05/25 16:36) Vital Signs Date Time Temp Pulse Resp B/P (MAP) Pulse Ox O2 Delivery O2 Flow Rate FiO2 03/05/25 15:58 77 14 119/80 (93) 98 03/05/25 15:22 73 12/30/25 14:28 83 135/77 03/05/25 13:30 Room Air* 0 21 03/05/25 13:28 164/105 03/05/25 13:24 91 03/05/25 12:56 98.1 90 16 216/123 98 98.1 03/05/25 12:34 94 Medications Medications Dose Ordered Sig/Juan C Route Start Time Stop Time Status Last Admin Dose Admin Acetaminophen/ Hydrocodone Bitart 1 tab ONCE ONCE PO 03/05/25 14:45 03/05/25 14:46 DC 03/05/25 14:44 1 TAB Amlodipine Besylate 10 mg ONCE ONCE PO 03/05/25 13:15 03/05/25 13:16 DC 03/05/25 13:28 10 MG Assessment/Plan Assessment/Plan Acute chest pain, likely unstable angina Hypertensive emergency Uncontrolled hypertension CAD status post PTCA 1 JENNIFER LAD 2024 on Plavix and aspirin Chronic heart failure with a reduced ejection fraction-NYHA class 2-no exacerbation Likely obstructive sleep apnea Type 2 diabetes mellitus-A1c pending History of CVA without residual deficits Disc herniation and back pain Obesity Plan: Recommendation: Dr. Malagon: Patient has been admitted to telemetry unit Cardiology consultation: Pending Echocardiogram, guideline directed medical therapy, blood pressure control, dual antiplatelet Continue aspirin and Plavix daily, Lipitor daily Lasix 20 mg daily, Coreg 6.25 b.i.d., spironolactone 25 mg daily, Jardiance 10 mg daily, Entresto Follow up with the A1c CPAP HS Strict I&Os, cardiac diet Plan discussed with the patient in which all questions have been answered Goals of care discussed for more than 19 minutes, full code status Case discussed with Dr. Malagon Plan discussed with: Patient My Orders Orders - MILADIS HERNANDEZ Procedure Category Date Status Time Admit ADMIT 03/05/25 Transmitted 16:36 Visit Coding STANDARD RES Billing Provider: JOSELINE ATKINS MD Date of Service if different f: Mar 05, 2025 Common Visit Codes: [id number] INP/OBS CARE (HIGH) MILADIS HERNANDEZ Mar 05, 2025 17:22
[2025-03-05 17:48] LABS: Hematocrit 39.8 % (36.0-46.0); Hemoglobin 13.6 g/dL (12.2-16.2); Mean Corpuscular Hemoglobin 28.4 pg (28.0-32.0); Mean Corpuscular Volume 83.5 fL (80.0-100.0); Nucleated Red Blood Cells % 0.0 %
[2025-03-05 19:08] LABS: Cholesterol 197 mg/dL (< 200)
[2025-03-05 19:11] LABS: HDL Cholesterol 39 mg/dL (40-59); Triglycerides 171 mg/dL (< 150)
[2025-03-05] MEDS: HYDROmorphone HCL 2 MG/ML VL/or syr IV ONE (19:14)
[2025-03-05 20:42] LABS: Urine Protein, UAD 1+ (Negative); Urine WBC Clumps PRESENT /hpf (None Seen)
[2025-03-05 20:46] LABS: Cannabinoid Screen, Urine Neg (NEGATIVE); Opiate Scree,Urine Pos (NEGATIVE)
[2025-03-05 20:53] LABS: Amphetamine Screen, Urine Neg (NEGATIVE); Barbiturate Scree,Urine Neg (NEGATIVE); Benzodiazephine Screen, Urine Neg (NEGATIVE); Cocaine Screen, Urine Neg (NEGATIVE); Phencyclidine Screen, Urine Neg (NEGATIVE)
[2025-03-05 21:40] VITALS: BP 141/96; PULSE 75; RESP 18; TEMP 98.3; O2SAT 97
[2025-03-05] MEDS: InsuLIN REG 1unit/0.01ml Soln (100units/ml) SC SCH (22:00)
[2025-03-05] MEDS: ATORVASTATIN 20 MG TAB PO SCH (22:03)
[2025-03-05] MEDS: SACUBITRIL-VALSARTAN 24mg/26mg TAB PO SCH (22:04)
[2025-03-05] MEDS: SPIRONOLACTONE 25 MG TAB PO ONE (22:04)
[2025-03-05] MEDS: CARVEDILOL 3.125 MG TAB PO SCH (22:06)
[2025-03-05] MEDS: POTASSIUM CHL 20 Meq TABLET PO ONE (22:07)
[2025-03-05] MEDS: ACCU-CHEK COMFORT CURVE STRIP VI SCH (22:09)
[2025-03-05 22:43] VITALS: BP 134/79; PULSE 70; RESP 19; TEMP 97.7; O2SAT 95
[2025-03-05 23:00] VITALS: BP 141/93; PULSE 75; RESP 18; TEMP 98.3; O2SAT 97
[2025-03-05 23:01] VITALS: PULSE 70; PULSE 75; RESP 18; O2SAT 97; O2SAT 98
[2025-03-05] MEDS: ERGOCALCIFEROL 50,000 UNIT(1.25MG) CAP PO SCH (23:27)
[2025-03-05] MEDS: POTASSIUM CHL 20MEQ/100ML 100 ML IV SCH (23:28)
[2025-03-06] VITALS (8 sets, daily range): BP systolic 116–155; BP diastolic 73–94; PULSE 57–82; RESP 16–20; TEMP 97.5–98.4; O2SAT 95–98
[2025-03-06] MEDS: POTASSIUM CHL 20MEQ/100ML 100 ML IV ONE ×2 (02:34)
[2025-03-06 06:09] LABS: Hematocrit 35.8 % (36.0-46.0); Hemoglobin 11.9 g/dL (12.2-16.2); Mean Corpuscular Hemoglobin 27.9 pg (28.0-32.0); Mean Corpuscular Volume 84.1 fL (80.0-100.0); Nucleated Red Blood Cells % 0.0 %
[2025-03-06 06:15] LABS: INR 1.08 (0.9-1.15); Partial Thromboplastin Time 27.8 SEC (24.5-34.5); Prothrombin Time 11.4 sec (9.3-11.8)
[2025-03-06 06:19] LABS: Alanine Aminotransferase 29 U/L (7-40); Albumin 3.9 g/dL (3.2-4.8); Alkaline Phosphatase 81 U/L (46-116); Anion Gap 9 (5-15); BUN/Creatinine Ratio 12.2 (10.0-20.0); Bilirubin, Total 1.1 mg/dL (0.2-1.0); Blood Urea Nitrogen 11 mg/dL (9-23); Calcium 9.1 mg/dL (8.7-10.4); Carbon Dioxide 27 mmol/L (20-31); Chloride 105 mmol/L (98-107); Glucose 100 mg/dL (74-106); Sodium 141 mmol/L (136-145); Total Protein 7.1 g/dL (5.7-8.2)
[2025-03-06 06:20] LABS: Potassium 3.5 mmol/L (3.5-5.1)
[2025-03-06] MEDS ORDERED: AMLO1TAB23 PO (10:58)
[2025-03-06] MEDS: CLOPIDOGREL BISULFATE 75 MG TAB PO SCH (11:06)
[2025-03-06] MEDS: EMPAGLIFLOZIN 10 MG TAB PO SCH (11:06)
[2025-03-06] MEDS: ENOXAPARIN SOD 40 MG/0.4 ML SYRINGE SC SCH (11:07)
[2025-03-06] MEDS: ASPirin-EC 81 mg tab PO SCH (11:07)
[2025-03-06] MEDS: FUROSEMIDE 20 MG/2 ML VIAL IV SCH (11:08)
[2025-03-06] MEDS: SPIRONOLACTONE 25 MG TAB PO SCH (11:08)
[2025-03-06] MEDS: PANTOPRAZOLE 40 MG TAB PO SCH (13:18)
[2025-03-06] MEDS: MORPHINE SULFATE 4 MG/ML SYR/VIAL IV PRN (13:19)
[2025-03-06] MEDS: DOXYCYCLINE 100MG/100ML 100 ML IV SCH (14:46)
--- NOTE | 2025-03-06 15:11 | DVHPNRES ---
Progress Note Date Seen: Mar 06, 2025 Resident Creating Document: JOSE LEIVA RESIDENT Medical Necessity Reason Pt with a Central, PICC or Fol: No Subjective Review of Systems 49-year-old female with past medical history of CAD status post PTCA 1 JENNIFER aspirin and Plavix, heart failure with reduced ejection fraction, hypertension, dyslipidemia, intraoperative cardiac arrest during abdominal surgery 2022, CVA without residual deficits, chronic back pain, type 2 diabetes mellitus. presented to ER with a chief complaint of chest pain starting earlier this morning when she woke up. Patient reports chest pain, midline sternal, 10/10, pressure-like, radiated to the right arm, increased with exertion associated with shortness of breath.. She was recently seen in his facility and underwent PTCA to LAD by Dr. Vogel on 02/2024, reports compliance to aspirin and Plavix daily. She denied nausea, vomiting, constipation, diarrhea, fever, chills, palpitations. On arrival to the ED, blood pressure was greater than 200 mmHg. Past medical /surgical history: CAD status post PTCA 1 JENNIFER aspirin and Plavix, heart failure with reduced ejection fraction, hypertension, dyslipidemia, intraoperative cardiac arrest during abdominal surgery 2022, CVA without residual deficits, chronic back pain, type 2 diabetes mellitus. Home medication: Aspirin, Plavix PCP: Dr. 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 Vogel [facility]- PS- Allergy- Personal History/ Social History- Patient was seen today at the bedside. Patient Cardiovascular- deny acute chest pain or shortness of breath or cough or palpitation Respiratory denies cough or short of breath or wheezing Gastrointestinal- denies any rectal bleeding, nausea or vomiting Musculoskeletal-denies acute joint swelling or tenderness or redness Neurological- denies acute dysarthria, dysphagia, change in vision Psychiatry- denies depression or SI or HI Skin- denies acute rash or purpura Objective vital signs Vital Sign Date Time Temp Pulse Resp B/P (MAP) Pulse Ox O2 Delivery O2 Flow Rate FiO2 03/06/25 13:19 82 16 140/87 03/06/25 13:02 98.4 97 98.4 03/06/25 09:46 Room Air 0.0 03/06/25 09:46 21 Total Intake and Output 03/05/25 03/05/25 03/06/25 15:00 23:00 07:00 Intake Total 100 ml Balance 100 ml medications Current Medications Medications Dose Ordered Sig/Juan C Route Start Time Stop Time Status Last Admin Dose Admin Aspirin 81 mg DAILY PO 03/06/25 10:00 03/06/25 11:07 81 MG Atorvastatin Calcium 80 mg HS PO 03/05/25 22:00 03/05/25 22:03 80 MG Clopidogrel Bisulfate 75 mg DAILY PO 03/06/25 10:00 03/06/25 11:06 75 MG Carvedilol 6.25 mg Q12HR PO 03/05/25 22:00 03/06/25 11:06 6.25 MG Diagnostic Test (Pha) 1 strip ACHS 03/05/25 22:00 03/06/25 11:28 1 STRIP Insulin Human Regular ACHS SC 03/05/25 22:00 Dextrose 50 ml UD PRN IV 03/05/25 17:15 Enoxaparin Sodium 40 mg DAILY SC 03/06/25 10:00 03/06/25 11:07 40 MG Acetaminophen 500 mg Q4HPRN PRN PO 03/05/25 17:15 Morphine Sulfate 1 mg Q4HPRN PRN IV 03/05/25 18:15 03/06/25 13:19 1 MG Empaglifozin 10 mg DAILY PO 03/06/25 10:00 03/06/25 11:06 10 MG Spironolactone 25 mg DAILY PO 03/06/25 10:00 03/06/25 11:08 25 MG Sacubitril/ Valsartan 1 tab BID PO 03/05/25 22:00 03/06/25 11:05 1 TAB Furosemide 20 mg DAILY IV 03/06/25 10:00 03/06/25 11:08 20 MG Ergocalciferol 50,000 unit Q7D PO 03/05/25 22:00 03/05/25 23:27 50,000 UNIT Ceftriaxone Sodium 50 ml @ 100 mls/hr DAILY@09 IV 03/06/25 08:15 03/06/25 11:08 100 MLS/HR Doxycycline Hyclate 100 ml @ 50 mls/hr Q12H IV 03/06/25 08:15 03/06/25 14:46 50 MLS/HR Pantoprazole Sodium 40 mg DAILY@0600 PO 03/06/25 08:15 03/06/25 13:18 40 MG Examination General examination- HEENT- PEERLA, no acute nasal discharge Cardiovascular- S1-S2 audible, rate and rhythm regular, no murmur Respiratory- CTAB, no wheeze or rhonchi Gastrointestinal-nontender, bowel sound+. Nondistended Musculoskeletal-no acute joint swelling or tenderness or redness Lower extremity- Neurological- cranial nerves intact, no acute dysarthria or dysphagia Psychiatry- denies depression or SI or HI Skin- no acute rash or purpura laboratory and microbiology Laboratory Tests 03/06/25 05:13 Test 03/06/25 05:13 Range/Units Serum Glucose 100 74-106 mg/dL Problem List/Assessment/Plan Problem List/Assessment/Plan Goals of care, Code status full code ; discussed with >15 minutes PUD prophylaxis: Pantoprazole DVT prophylaxis: Lower Plan discussed with Dr. Malagon , nursing staff, Total time spent on patient evaluation, chart review, assessment and plan, discussion discussion >35 minutes My Orders My Orders Orders - JOSE LEIVA Procedure Category Date Status Time Ceftriaxone 1gm/50ml PHA 03/06/25 In Process (Rocephin) 08:15 Doxycycline PHA 03/06/25 In Process 100mg/100ml 08:15 Pantoprazole Tablet PHA 03/06/25 In Process (Protonix Tablet) 08:15 Blood Culture MIGUEL ANGEL 03/06/25 In Process 12:01 Visit Coding STANDARD RES Billing Provider: JOSELINE ATKINS MD Date of Service if different f: Mar 06, 2025 JOSE LEIVA Mar 06, 2025 15:11
[2025-03-06] MEDS ORDERED: NITR-87 PO (16:51)
--- NOTE | 2025-03-06 17:01 | DVHPN2 ---
Consult Progress Note Subjective Other Systems: Patient is in normal sinus rhythm on court monitor at time of assessment Patient denies any cardiac symptoms at time of assessment. Objective vital signs Vital Sign Date Time Temp Pulse Resp B/P (MAP) Pulse Ox O2 Delivery O2 Flow Rate FiO2 03/06/25 16:47 98.4 76 16 154/94 (114) 98 98.4 03/06/25 09:46 Room Air 0.0 03/06/25 09:46 21 Total Intake and Output 03/05/25 03/05/25 03/06/25 15:00 23:00 07:00 Intake Total 100 ml Balance 100 ml medications Current Medications Medications Dose Ordered Sig/Juan C Route Start Time Stop Time Status Last Admin Dose Admin Aspirin 81 mg DAILY PO 03/06/25 10:00 03/06/25 11:07 81 MG Atorvastatin Calcium 80 mg HS PO 03/05/25 22:00 03/05/25 22:03 80 MG Clopidogrel Bisulfate 75 mg DAILY PO 03/06/25 10:00 03/06/25 11:06 75 MG Carvedilol 6.25 mg Q12HR PO 03/05/25 22:00 03/06/25 11:06 6.25 MG Diagnostic Test (Pha) 1 strip ACHS 03/05/25 22:00 03/06/25 11:28 1 STRIP Insulin Human Regular ACHS SC 03/05/25 22:00 Dextrose 50 ml UD PRN IV 03/05/25 17:15 Enoxaparin Sodium 40 mg DAILY SC 03/06/25 10:00 03/06/25 11:07 40 MG Acetaminophen 500 mg Q4HPRN PRN PO 03/05/25 17:15 Morphine Sulfate 1 mg Q4HPRN PRN IV 03/05/25 18:15 03/06/25 13:19 1 MG Empaglifozin 10 mg DAILY PO 03/06/25 10:00 03/06/25 11:06 10 MG Spironolactone 25 mg DAILY PO 03/06/25 10:00 03/06/25 11:08 25 MG Sacubitril/ Valsartan 1 tab BID PO 03/05/25 22:00 03/06/25 11:05 1 TAB Furosemide 20 mg DAILY IV 03/06/25 10:00 03/06/25 11:08 20 MG Ergocalciferol 50,000 unit Q7D PO 03/05/25 22:00 03/05/25 23:27 50,000 UNIT Ceftriaxone Sodium 50 ml @ 100 mls/hr DAILY@09 IV 03/06/25 08:15 03/06/25 11:08 100 MLS/HR Doxycycline Hyclate 100 ml @ 50 mls/hr Q12H IV 03/06/25 08:15 03/06/25 14:46 50 MLS/HR Pantoprazole Sodium 40 mg DAILY@0600 PO 03/06/25 08:15 03/06/25 13:18 40 MG Examination: GENERAL:Normal, LUNGS:Normal, CVS:Normal, NEURO:Normal laboratory and microbiology Laboratory Tests 03/06/25 05:13 Test 03/06/25 05:13 Range/Units Serum Glucose 100 74-106 mg/dL Problem List/Assessment/Plan Problem List/Assessment/Plan Chest pain likely in the setting of hypertensive urgency Coronary artery disease status post recent PTCA x1 JENNIFER (on Plavix and aspirin) Dyslipidemia History of HFrEF, NYHA class II (per echo on 09/17/24 EF 40%) History of CVA without residual deficits Type 2 diabetes mellitus Chronic back pain Morbid obesity Plan/Recommendations (Dr. Vogel): Case reviewed and discussed with including pertinent labs and 12 lead EKGs. We will proceed with obtaining a transthoracic echocardiogram to evaluate cardiac function. Previous transthoracic echocardiogram from 09/17/2024 reveals an EF of approximately 40%.Resume guideline directed medical therapy for CHF as tolerated. Troponin levels have been negative. Chest pain likely in the setting of elevated blood pressure. Continue aggressive BP control as tolerated. Continue patient's dual antiplatelet therapy and lipid-lowering agent given recent stent placement. Continue with close cardiac surveillance and notify cardiology team immediately for any ECG changes. Thank you for allowing us to care for this patient. Please call with any questions or concerns. This medical document was created using an electronic medical record system with voice recognition software and computerized dictation system. Although this document has been carefully reviewed, there might still be some phonetic and typographical errors. Occasional wrong-word or ``sound-alike substitutions may have occurred due to the inherent limitations of voice recognition software. These areas are purely typographical due to imperfections of the software programs and do not reflect any compromise in the patient's medical care. Please read the chart carefully and recognize, using context, where these substitutions have occurred. Plan discussed with: Patient Date of Service: Mar 06, 2025 Billing Provider: LEANNE MCINTYRE Common Visit Codes: [id number] INP/OBS CARE(HIGH) LEANNE MCINTYRE Mar 06, 2025 17:01
[2025-03-06] MEDS ORDERED: BACL10TA PO (17:11)
[2025-03-06] MEDS ORDERED: HYDR-4902 PO (17:21)
[2025-03-06] MEDS ORDERED: DOXY100C79 PO (18:49)
--- NOTE | 2025-03-06 18:56 | DVHDSRES ---
Discharge Summary Date of Admission Resident Creating Document: JOSE LEIVA RESIDENT Mar 05, 2025 at 16:36 Date of Discharge: Mar 06, 2025 Admitting Diagnosis Acute chest pain likely due unstable angina Labs/Diagnostic Data: Laboratory Results Test 03/06/25 11:23 03/06/25 05:13 03/05/25 18:20 03/05/25 15:31 POC Glucose 116 mg/dl (70-106) White Blood Count 11.5 10^3/uL (4.4-10.8) Red Blood Count 4.25 10^6/uL (4.0-5.20) Hemoglobin 11.9 g/dL (12.2-16.2) Hematocrit 35.8 % (36.0-46.0) Mean Corpuscular Volume 84.1 fL (80.0-100.0) Mean Corpuscular Hemoglobin 27.9 pg (28.0-32.0) Mean Corpuscular Hemoglobin Concent 33.2 g/dL (32.0-36.0) Red Cell Distribution Width 14.9 % (11.8-14.3) Platelet Count 292 10^3/uL (140-450) Mean Platelet Volume 9.0 fL (6.9-10.8) Neutrophils (%) (Auto) 53.4 % (37.0-80.0) Lymphocytes (%) (Auto) 38.5 % (10.0-50.0) Monocytes (%) (Auto) 6.0 % (0.0-12.0) Eosinophils (%) (Auto) 1.6 % (0.0-7.0) Basophils (%) (Auto) 0.5 % (0.0-2.0) Neutrophils # (Auto) 6.2 10 ^3/uL (1.6-8.6) Lymphocytes # (Auto) 4.4 10 ^3/uL (0.4-5.4) Monocytes # (Auto) 0.7 10 ^3/uL (0-1.3) Eosinophils # (Auto) 0.2 10 ^3/uL (0-0.8) Basophils # (Auto) 0.1 10 ^3/uL (0-0.2) Nucleated Red Blood Cells 0.0 % Prothrombin Time 11.4 sec (9.3-11.8) Prothrombin Time INR 1.08 (0.9-1.15) Activated Partial Thromboplast Time 27.8 SEC (24.5-34.5) Sodium Level 141 mmol/L (136-145) Potassium Level 3.5 mmol/L (3.5-5.1) Chloride Level 105 mmol/L (98-107) Carbon Dioxide Level 27 mmol/L (20-31) Anion Gap 9 (5-15) Blood Urea Nitrogen 11 mg/dL (9-23) Creatinine 0.90 mg/dL (0.550-1.02) Glomerular Filtration Rate Calc 78 mL/min (>90) BUN/Creatinine Ratio 12.2 (10.0-20.0) Serum Glucose 100 mg/dL (74-106) Calcium Level 9.1 mg/dL (8.7-10.4) Total Bilirubin 1.1 mg/dL (0.2-1.0) Aspartate Amino Transferase (AST) 18 U/L (13-40) Alanine Aminotransferase (ALT) 29 U/L (7-40) Alkaline Phosphatase 81 U/L (46-116) Total Protein 7.1 g/dL (5.7-8.2) Albumin 3.9 g/dL (3.2-4.8) Urine Color Yellow (Yellow) Urine Clarity Ex.turbid (Clear) Urine pH 5.5 (5.0-9.0) Urine Specific [place] 1.025 (1.001-1.035) Urine Protein 1+ (Negative) Urine Ketones Trace (Negative) Urine Blood Negative /uL (Negative) Urine Nitrite Negative (Negative) Urine Bilirubin Negative (Negative) Urine Urobilinogen 3 mg/dL (Negative) Urine Leukocyte Esterase 3+ /uL (Negative) Urine RBC 12 /hpf (0 - 4) Urine WBC Clumps Present /hpf (None Seen) Urine Microscopic WBC 29 /HPF (0-5) Urine Squamous Epithelial Cells Many /hpf (<5) Urine Bacteria Many /hpf (None Seen) Urine Mucus Few (None Seen) Urine Glucose Normal mg/dL (Normal) Urine Opiates Screen Pos (NEGATIVE) Urine Fentanyl Screen Neg (NEGATIVE) Urine Barbiturates Screen Neg (NEGATIVE) Urine Phencyclidine Screen Neg (NEGATIVE) Urine Amphetamines Screen Neg (NEGATIVE) Urine Benzodiazepines Screen Neg (NEGATIVE) Urine Cocaine Screen Neg (NEGATIVE) Urine Cannabinoids Screen Neg (NEGATIVE) Hemoglobin A1c 6.0 % A1C (<5.7) Magnesium Level 2.0 mg/dL (1.6-2.6) Troponin I High Sensitivity 14 ng/L (</=34) B-Type Natriuretic Peptide 44.28 pg/mL (0-100) Triglycerides Level 171 mg/dL (< 150) Cholesterol Level 197 mg/dL (< 200) LDL Cholesterol 142 mg/dL (< 100) HDL Cholesterol 39 mg/dL (40-59) Vitamin B12 Level 903 pg/mL (211-911) Vitamin D 25-Hydroxy 14.8 ng/mL (30.0-100) Thyroid Stimulating Hormone (TSH) 3.59 uIU/mL (0.55-4.78) Other Laboratory Tests 03/06/25 05:13 Brief Hx & Hospital Course: 49-year-old female presented to ER with a chief complaint of chest pain starting earlier this morning. Patient reports chest pain, midline sternal, diet in nature, which radiated to the right arm, associated with shortness of breath at around 0800 in the morning. She was recently seen in his facility and underwent PTCA to LAD by Dr. Vogel on 02/2024, reports compliance to aspirin and Plavix daily. She denied nausea, vomiting, constipation, diarrhea, fever, chills, palpitations. On arrival to the ED, blood pressure was greater than 200 mmHg. Patient's bowel on tachycardia, tachypnea. Patient had leukocytosis with WBC 11.5, positive for opiates. Urinalysis revealed leukocyte esterase 3+, WBC 29, bacteria many. Right lower lobe opacity likely pneumonia versus atelectasis versus aspiration. He has a sinus rhythm, no acute STT wave changes. Hospital course-at the emergency patient was treated with IV labetalol for hypertensive emergency. Patient was also given ceftriaxone and doxycycline for suspected pneumonia and UTI. Patient was seen by Cardiology, recommended to continue home medications. Patient is adamant about going home today. Patient is being discharged with the Macrobid and doxycycline. Patient was advised to resume home medications. patient was advised to follow up at [facility]/PCP/Cardiology with the urine culture sensitivity report and echo 2D report. Patient was hemodynamically stable on discharge. All questions answered. General Appearance: Alert, Oriented X3, Cooperative, No acute distress HEENT: Mucous membr. moist/pink Respiratory: Clear to auscultation, Normal air movement Cardiovascular: Regular rate, Normal S1, Normal S2 Abdominal: Normal bowel sounds, No tenderness Extremities: No edema, Normal pulses Skin: No rashes Neuro: Normal gait, Normal speech Psych/Mental Status: Mental status NL, Mood NL Assessment Acute chest pain, likely due to unstable angina Hypertensive emergency Uncontrolled hypertension CAD status post PTCA 1 JENNIFER LAD 2024 on Plavix and aspirin Acute Complicated UTI suspected pneumonia Gram-positive versus Gram-negative Chronic heart failure with a reduced ejection fraction-NYHA class 2-no exacerbation Likely obstructive sleep apnea Type 2 diabetes mellitus-A1c pending History of CVA without residual deficits Disc herniation and chronic back pain Hyperbilirubinemia Obesity Plan Aspirin 81 mg p.o. daily Plavix 75 mg p.o. daily Atorvastatin 80 mg p.o. daily Amlodipine 10 mg p.o. daily Carvedilol 6.25 mg p.o. daily Zetia 10 mg p.o. daily Metformin 1000 mg daily Entresto 1 tab b.i.d. Ozempic as prescribed Spironolactone 50 mg p.o. daily Clonidine PRN Macrobid 100 mg p.o. b.i.d. for 5 days Doxycycline 100 mg p.o. b.i.d. for 7 days Baclofen 10 mg p.o. b.i.d. PRN Nucla as prescribed Plan of care discussed with Dr. Malagon Condition at Discharge: Stable Final Diagnosis/Problems List Acute chest pain, likely unstable angina Hypertensive emergency Uncontrolled hypertension CAD status post PTCA 1 JENNIFER LAD 2024 on Plavix and aspirin Acute Complicated UTI suspected pneumonia Gram-positive versus Gram-negative Chronic heart failure with a reduced ejection fraction-NYHA class 2-no exacerbation Likely obstructive sleep apnea Type 2 diabetes mellitus-A1c pending History of CVA without residual deficits Disc herniation and back pain Obesity Discharge Disposition: Home Discharge Instruct/Medications Diet: Consistent carbohydrate, Cardiac 2g Na,low cholest Activity: No Restrictions, As Tolerated Follow Up/Referral: [facility] clinic PCP Cardiology Medications: As per EMR Scheduled Amlodipine Besylate (Amlodipine Besylate), 1 TAB PO DAILY, (Reported) Aspirin ([place]), 81 MG PO DAILY, (Reported) Atorvastatin Calcium (Atorvastatin Calcium), 80 MG PO HS Carvedilol (Carvedilol), 1 TAB PO BID, (Reported) Clopidogrel Bisulfate (Clopidogrel), 1 TAB PO DAILY, (Reported) Empagliflozin (Jardiance), 10 MG PO DAILY, (Reported) Ezetimibe (Zetia), 1 TAB PO DAILY, (Reported) Isosorbide Mononitrate (Isosorbide Mononitrate Er), 60 MG PO DAILY, (Reported) Metformin Hydrochloride (Metformin Hcl), 1,000 MG PO DAILY, (Reported) Nitrofurantoin Monohydrate Mac (Macrobid), 100 MG PO BID Sacubitril-Valsartan (Entresto 49-51 mg), 1 TAB PO BID, (Reported) Semaglutide (Ozempic), 0.5 MG SC QWEEKLY, (Reported) Spironolactone (Spironolactone), 1 TAB PO DAILY, (Reported) Scheduled PRN Baclofen (Baclofen), 10 MG PO BIDP PRN Clonidine Hydrochloride (Clonidine Hcl), 0.1 MG PO Q2HPRN PRN for SYSTOLIC BP>160, (Reported) Hydrocodone-Acetaminophen (Hydrocodone Bitartrate/AC 5-325 mg), 1 TAB PO QIDP PRN Discontinued Medications Amlodipine Besylate (Norvasc Tablet), 2 TAB PO DAILY, (Reported) Discontinued Reason: Prescription changed Durable Medical Equipment Blood Glucose Monitoring Suppl (D-Care Glucometer Kit/Glu W/Device), KIT XX DAILY, (DME) Discharge Statement: "Patient was advised to return to the ER or call 911 if any headaches, dizziness, shortness of breath, chest pain, abdominal pain, bleeding, fevers, or worsening of medical condition. Patient was counseled about treatment plan, medications, possible side effects, patientverbalized understanding. All questions were answered to the best of my ability. This discharge took greater then 30 minutes in planning, reviewing documentation, counseling the patient, and discussing with other team members." ASSESSMENT ASSESSMENT Assessment Unstable angina Hypertensive emergency CAD, status post PTCA Visit Coding STANDARD RES Billing Provider: JOSELINE ATKINS MD Date of Service if different f: Mar 06, 2025 Common Visit Codes: 36410-KRU/OBS DISCH DAY >30min JOSE LEIVA Mar 06, 2025 18:56
== END 2025-03-06 18:21 | disposition home or self-care (01) | DRG 304 ==
LOC: ER 12:28 → OVERFLOW 16:36 → TELE-WESTW 23:42
PROVIDERS: ADMIT Student in an Organized Health Care Education/Training Program; ATTEND Student in an Organized Health Care Education/Training Program
PROC: 5A09357 Assistance with Respiratory Ventilation, Less than 24 Consecutive Hours, Continuous Positive Airway Pressure (ICD-10-PCS; principal; 2025-03-06)
DX: I16.1 Hypertensive emergency (principal); J15.69 Pneumonia due to other Gram-negative bacteria; J15.9 Unspecified bacterial pneumonia; I50.22 Chronic systolic (congestive) heart failure; Z86.74 Personal history of sudden cardiac arrest; N39.0 Urinary tract infection, site not specified; I11.0 Hypertensive heart disease with heart failure; E11.9 Type 2 diabetes mellitus without complications; E66.01 Morbid (severe) obesity due to excess calories; G89.29 Other chronic pain; M54.9 Dorsalgia, unspecified; E78.5 Hyperlipidemia, unspecified; Z68.35 Body mass index [BMI] 35.0-35.9, adult; G47.33 Obstructive sleep apnea (adult) (pediatric); E80.6 Other disorders of bilirubin metabolism; I25.119 Atherosclerotic heart disease of native coronary artery with unspecified angina pectoris; I45.4 Nonspecific intraventricular block; Z82.0 Family history of epilepsy and other diseases of the nervous system; Z82.49 Family history of ischemic heart disease and other diseases of the circulatory system; Z83.3 Family history of diabetes mellitus; Z86.73 Personal history of transient ischemic attack (TIA), and cerebral infarction without residual deficits; Z90.710 Acquired absence of both cervix and uterus; Z98.61 Coronary angioplasty status; Z79.82 Long term (current) use of aspirin; Z79.899 Other long term (current) drug therapy
CPT/HCPCS: 36415; 71045; 80053; 80061; 80307; 81001; 82306; 82607; 82962; 83036; 83735; 83880; 84443; 84484; 85025; 85610; 85730; 87040; 93005; 93306; 94660; 96374; 99291; 99292; G0378; J3480